=== PATIENT | male | born 1960 | race Caucasian/White ===

== ENCOUNTER 2019-12-12 10:00 | Outpatient (REF) | payer OTHER, SELFPAY | END 2019-12-12 10:01 | disposition home or self-care (01) | LOC: HO.HMGCLDS 10:00 | PROVIDERS: PCP Nurse Practitioner Family; Visit Provider Internal Medicine | DX: Z20.828 Contact with and (suspected) exposure to other viral communicable diseases (principal) | CPT/HCPCS: 36415; 87635 ==

== ENCOUNTER 2020-04-30 13:07 | Outpatient (REF) | payer OTHER, SELFPAY ==
--- NOTE | ~2020-04-30 | US_ITS ---
EXAMINATION: US VENOUS ULTRASOUND WITH DOPPLER LOWER EXTREMITY, LEFT CLINICAL INFORMATION: Localized edema COMPARISON: None TECHNIQUE: Ultrasound of the deep veins is performed from the hip to the calf with compression sonography and color and pulse Doppler assessment. Spectral analysis with color-flow imaging is performed. FINDINGS: There is normal venous compression and respiratory variation and augmented flow. The visualized common femoral vein, superficial femoral vein, profunda femoral vein, popliteal vein, and the trifurcation region shows no evidence of deep venous thrombosis. There is no significant popliteal fossa cyst. There is a prominent left inguinal lymph node that measures 4.0 x 0.9 x 3.8 cm. It continues to have echogenic central fatty hilum, a benign morphologic feature. If the patient's symptoms persist, followup ultrasound in 5 days 7 days might be of value to exclude proximal propagation from a non-visualized calf vein. US/US venous duplex LE LT IMPRESSION: No DVT demonstrated in the left lower extremity. Enlarged left inguinal lymph node, nonspecific.
== END 2020-04-30 13:08 | disposition home or self-care (01) ==
LOC: HO.HMGCX 13:07
PROVIDERS: Visit Provider Hospitalist
DX: R60.0 Localized edema (principal)
CPT/HCPCS: 93971

== ENCOUNTER → 2020-06-05 10:14 | Outpatient (BNVA) | payer OTHER, SELFPAY | PROVIDERS: PCP Nurse Practitioner Family; Visit Provider Surgery Vascular Surgery | DX: I83.12 Varicose veins of left lower extremity with inflammation (principal) | CPT/HCPCS: 99202 ==

== ENCOUNTER 2020-06-12 10:15 | Outpatient (REF) | payer OTHER, SELFPAY ==
--- NOTE | ~2020-06-12 | US_ITS ---
EXAMINATION: RIGHT and LEFT LOWER EXTREMITY VENOUS ULTRASOUND (Reflux Exam) CLINICAL INDICATION: Varicose veins of the left lower extremity with inflammation. COMPARISON: 04/30/2020 TECHNIQUE: Color flow triplex imaging and compression Doppler was performed to evaluate both the deep and the superficial systems bilaterally. To evaluate the superficial system, the examination was performed in the upright position. Color-flow Doppler ultrasound and compression ultrasound were utilized. In addition, maneuvers were utilized to demonstrate reflux. FINDINGS: 1. DEEP VENOUS ULTRASOUND OF THE RIGHT LOWER EXTREMITY: Respiratory variation, normal compression and augmented flow are noted in the right common femoral vein as well as the right popliteal vein and there is no evidence of deep venous thrombosis at these locations. There is no evidence of reflux in the deep system in either the common femoral vein or the popliteal vein. There is no evidence of a Jerry's cyst. 2. SUPERFICIAL ULTRASOUND WITH DOPPLER OF RIGHT LOWER EXTREMITY: The right great saphenous vein at the saphenofemoral junction measures 7 mm without reflux, within the proximal thigh 7 mm with reflux of greater than 2 seconds, at the mid thigh 5 mm without reflux, above the knee 4 mm without reflux, below the knee 4 mm without reflux, at mid calf 4 mm without reflux, and at the ankle measures 3 mm without reflux. The right small saphenous vein measures 4 mm and shows no reflux. 3. DEEP VENOUS ULTRASOUND OF THE LEFT LOWER EXTREMITY: Respiratory variation, normal compression and augmented flow are noted in the left common femoral vein as well as the left popliteal vein and there is no evidence of deep venous thrombosis at these locations. There is reflux within the common femoral vein of approximately 1 second duration. There is no evidence of a popliteal artery aneurysm or popliteal fossa cyst. 4. SUPERFICIAL ULTRASOUND WITH DOPPLER OF LEFT LOWER EXTREMITY: Left great saphenous vein at the saphenofemoral junction measures 7 mm with reflux up to 2.7 seconds, at the mid thigh 6 mm with reflux of greater than 2 seconds, above the knee 7 mm with reflux greater than 3 seconds, below the knee 6 mm right foot reflux greater than 3 seconds, at mid calf 3 mm without reflux, and at the ankle measures 3 mm without reflux. The left small saphenous vein measures 3 mm and shows no reflux. There are 3 mm perforators present, one in the distal thigh with reflux up to 3 seconds, one within the proximal calf without reflux, and one in the distal calf with reflux of greater than 1 second. Varicosities are seen within the distal thigh, proximal calf, mid calf, and distal calf with reflux up to greater than 3 seconds US/US venous duplex LE BI IMPRESSION: No evidence of reflux or thrombus in the common femoral veins or popliteal veins within the right lower extremity and with reflux only seen in the common femoral vein of up to 1 second within the left lower extremity. Venous insufficiency within the right lower extremity within the proximal thigh but not at the saphenofemoral junction. Venous insufficiency from the saphenofemoral junction through below the knee in the left lower extremity.
== END 2020-06-12 10:16 | disposition home or self-care (01) ==
LOC: HO.US 10:15
PROVIDERS: Visit Provider Surgery Vascular Surgery
DX: I83.893 Varicose veins of bilateral lower extremities with other complications (principal)
CPT/HCPCS: 93970

== ENCOUNTER → 2020-06-26 10:02 | Outpatient (BNVA) | payer OTHER, SELFPAY | PROVIDERS: PCP Nurse Practitioner Family; Visit Provider Surgery Vascular Surgery | DX: I83.12 Varicose veins of left lower extremity with inflammation (principal) | CPT/HCPCS: 99212 ==

== ENCOUNTER → 2020-07-04 11:10 | Outpatient (BNVA) | payer OTHER, SELFPAY | PROVIDERS: PCP Nurse Practitioner Family; Visit Provider Urology ==

== ENCOUNTER → 2020-07-20 10:37 | Outpatient (BNVA) | payer OTHER, SELFPAY | PROVIDERS: PCP Nurse Practitioner Family; Visit Provider Surgery Vascular Surgery | DX: I83.12 Varicose veins of left lower extremity with inflammation (principal) | CPT/HCPCS: 36475 ==

== ENCOUNTER 2020-07-23 11:17 | Outpatient (REF) | payer OTHER, SELFPAY ==
--- NOTE | ~2020-07-23 | US_ITS ---
EXAMINATION: US VENOUS ULTRASOUND WITH DOPPLER LOWER EXTREMITY, LEFT CLINICAL INFORMATION: This is a 60-year-old male who status post left leg radiofrequency ablation of the great saphenous vein. The procedure was performed on 07/20/2020. COMPARISON: None TECHNIQUE: Ultrasound of the deep veins is performed from the hip to the calf with compression sonography and color and pulse Doppler assessment. Spectral analysis with color-flow imaging is performed. FINDINGS: There is normal venous compression and respiratory variation and augmented flow. The visualized common femoral vein, superficial femoral vein, profunda femoral vein, popliteal vein, and the trifurcation region shows no evidence of deep venous thrombosis. There is no significant popliteal fossa cyst. The great saphenous vein appears occluded at 0.8 cm from the saphenofemoral junction. There is no extension into the common femoral vein. US/US venous duplex LE LT IMPRESSION: 1. No DVT demonstrated in the left lower extremity. 2. The great saphenous vein is occluded 0.8 cm from the saphenofemoral junction.
== END 2020-07-23 11:18 | disposition home or self-care (01) ==
LOC: HO.HMGCX 11:17
PROVIDERS: Visit Provider Surgery Vascular Surgery
DX: M79.605 Pain in left leg (principal)
CPT/HCPCS: 93971

== ENCOUNTER → 2020-08-02 09:01 | Outpatient (BNVA) | payer OTHER, SELFPAY | PROVIDERS: PCP Nurse Practitioner Family; Visit Provider Surgery Vascular Surgery | DX: I83.12 Varicose veins of left lower extremity with inflammation (principal) | CPT/HCPCS: 99212 ==

== ENCOUNTER 2020-10-22 09:17 | Outpatient (REF) | payer OTHER, SELFPAY ==
[2020-10-22 11:45] LABS: Glucose Urine UA NEG (NEG); Leukocyte Esterase Urine NEG (NEG); Nitrite Urine NEG (NEG); PH 5.5 (5.0-8.0); Specific Gravity - Urine >= 1.030 (1.005-1.025); UACC Culture Trigger NO; Urine Blood TRACE (NEG); Urine Ketones NEG (NEG); Urine Protein TRACE MG/DL (NEG-TRACE)
[2020-10-22 11:51] LABS: Appearance Urine CLEAR; Color Urine YELLOW
[2020-10-22 12:06] LABS: Bacteria Urine TRACE /LPF; Mucus Urine TRACE /LPF; RBC Urine 0-2 /HPF (0); Squamous Epithelial Cell Urine TRACE /LPF; Uric Acid Crystals Urine 2+ /LPF; WBC Urine 0-2 /HPF (0-4)
[2020-10-22 12:10] LABS: Alanine Aminotransferase 30 U/L (0-40); Albumin Level 4.3 g/dL (3.5-5.0); Alkaline Phosphatase 126 U/L (39-117); Anion Gap 16 (12-20); Aspartate Amino Transferase 33 U/L (5-37); Bilirubin Total 0.7 mg/dL (0.0-1.0); Blood Urea Nitrogen 15 mg/dL (9-16); Calcium 9.1 mg/dL (8.4-10.2); Carbon Dioxide 22 mmol/L (22-29); Chloride 109 mmol/L (96-108); Cholesterol 158 mg/dL; Estimated Glomerular Filt Rate > 60; Glucose Fasting 110 mg/dL (60-99); HDL Cholesterol 60 mg/dL; LDL Cholesterol Calculated 62 mg/dl; Potassium 3.9 mmol/L (3.3-5.1); Sodium 143 mmol/L (135-145); Total Protein 7.1 g/dL (6.5-8.0); Triglycerides 180 mg/dL
[2020-10-22 12:12] LABS: Prostate Specific Antigen Scr 0.84 ng/mL (<0.05-4.0); TSH reflex Free T4 0.76 uIU/mL (0.32-4.0)
== END 2020-10-22 09:18 | disposition home or self-care (01) ==
LOC: HO.HMGCLDS 09:17
PROVIDERS: PCP Nurse Practitioner Family; Visit Provider Nurse Practitioner Family
DX: Z00.00 Encounter for general adult medical examination without abnormal findings (principal); Z12.5 Encounter for screening for malignant neoplasm of prostate
CPT/HCPCS: 36415; 80053; 80061; 81001; 84153; 84443

== ENCOUNTER 2020-11-13 08:30 | Outpatient (REF) | payer OTHER, SELFPAY ==
[2020-11-13 12:17] LABS: Appearance Urine CLOUDY; Color Urine YELLOW; Glucose Urine UA NEG (NEG); Leukocyte Esterase Urine NEG (NEG); Nitrite Urine NEG (NEG); Specific Gravity - Urine >= 1.030 (1.005-1.025); UACC Culture Trigger NO; Urine Blood TRACE (NEG); Urine Ketones NEG (NEG); Urine Protein TRACE MG/DL (NEG-TRACE)
[2020-11-13 12:21] LABS: Alanine Aminotransferase 29 U/L (0-40); Albumin Level 4.3 g/dL (3.5-5.0); Alkaline Phosphatase 133 U/L (39-117); Aspartate Amino Transferase 26 U/L (5-37); Bilirubin Direct 0.3 mg/dL (0.0-0.5); Bilirubin Total 0.7 mg/dL (0.0-1.0); Gamma Glutamyl Transpeptidase 73 U/L (11-51); Total Protein 7.1 g/dL (6.5-8.0)
[2020-11-13 12:48] LABS: Amorphous Sediment Urine 3+ /LPF; Calcium Oxalate Crystals Urine 1+ /LPF; RBC Urine 0 /HPF (0); WBC Urine 0 /HPF (0-4)
== END 2020-11-13 08:31 | disposition home or self-care (01) ==
LOC: HO.HMGCLDS 08:30
PROVIDERS: PCP Nurse Practitioner Family; Visit Provider Nurse Practitioner Family
DX: R74.8 Abnormal levels of other serum enzymes (principal)
CPT/HCPCS: 36415; 80076; 81001; 81003; 82977

== ENCOUNTER 2020-12-26 08:56 | Outpatient (REF) | payer OTHER, SELFPAY ==
[2020-12-26 11:00] LABS: Alanine Aminotransferase 28 U/L (0-40); Albumin Level 4.4 g/dL (3.5-5.0); Alkaline Phosphatase 123 U/L (39-117); Aspartate Amino Transferase 27 U/L (5-37); Bilirubin Direct 0.3 mg/dL (0.0-0.5); Bilirubin Total 1.2 mg/dL (0.0-1.0); Gamma Glutamyl Transpeptidase 93 U/L (11-51); Total Protein 7.5 g/dL (6.5-8.0)
[2020-12-30 13:07] LABS: Alk.Phos Iso. Macrohepatic 0 % (<=0); Alk.Phos Isoenzymes Bone 28 % (28-66); Alk.Phos Isoenzymes Intest 7 % (1-24); Alk.Phos Isoenzymes Liver 65 % (25-69); Alk.Phos Isoenzymes Placental 0 % (<=0); Alk.Phos Isoenzymes Total 112 U/L (35-144)
== END 2020-12-26 08:57 | disposition home or self-care (01) ==
LOC: HO.LAB 08:56
PROVIDERS: PCP Nurse Practitioner Family; Referring Provider Nurse Practitioner Family; Visit Provider Nurse Practitioner Family
DX: R74.8 Abnormal levels of other serum enzymes (principal); E78.5 Hyperlipidemia, unspecified; R17 Unspecified jaundice; R10.9 Unspecified abdominal pain; Z12.11 Encounter for screening for malignant neoplasm of colon; Z87.891 Personal history of nicotine dependence
CPT/HCPCS: 36415; 80076; 82977; 84075; 84080; 99202

== ENCOUNTER → 2020-12-27 10:11 | Outpatient (BNVA) | payer OTHER, SELFPAY | PROVIDERS: Visit Provider Urology | DX: R31.0 Gross hematuria (principal) | CPT/HCPCS: 99212 ==

== ENCOUNTER 2021-03-28 | Outpatient (REF) | payer OTHER, SELFPAY ==
[2021-03-28 12:42] LABS: Alanine Aminotransferase 27 U/L (0-40); Albumin Level 4.4 g/dL (3.5-5.0); Alkaline Phosphatase 158 U/L (39-117); Aspartate Amino Transferase 23 U/L (5-37); Bilirubin Direct 0.2 mg/dL (0.0-0.5); Bilirubin Total 0.5 mg/dL (0.0-1.0); Lipase 38 U/L (8-78); Total Protein 7.7 g/dL (6.5-8.0)
[2021-03-28 14:06] LABS: Vitamin B12 238 pg/mL (200-900)
[2021-04-12 07:42] LABS: Vitamin D 25-OH, D2 <4; Vitamin D 25-OH, D3 43; Vitamin D 25-OH, Total 43
== END 2021-03-28 00:01 | disposition home or self-care (01) ==
LOC: HO.LAB
PROVIDERS: Visit Provider Nurse Practitioner Family
DX: R74.8 Abnormal levels of other serum enzymes (principal)
CPT/HCPCS: 36415; 80076; 82306; 82607; 82746; 83690

== ENCOUNTER → 2021-03-28 10:57 | Outpatient (BNVA) | payer OTHER, SELFPAY | PROVIDERS: PCP Nurse Practitioner Family; Visit Provider Nurse Practitioner Family | DX: R74.8 Abnormal levels of other serum enzymes (principal); R10.84 Generalized abdominal pain | CPT/HCPCS: 36415; 99212 ==

== ENCOUNTER 2021-05-01 11:28 | Outpatient (REF) | payer OTHER, SELFPAY ==
--- NOTE | ~2021-05-01 | US_ITS ---
EXAMINATION: US COMPLETE ABDOMEN WITH LIVER ELASTOGRAPHY CLINICAL INFORMATION: Abnormal liver function tests. COMPARISON: Previous abdominal ultrasound from 2016, abdominal MRI November [address] of the abdomen and pelvis November 2019 TECHNIQUE: Real-time imaging of the abdominal viscera. Noninvasive ultrasound liver fibrosis assessment is performed using Bayron ElastPQ point quantification shear wave elastography (2D-SWE) with a C5-2 MHz transducer. Multiple elastography samples are obtained. FINDINGS: PANCREAS: Normal. ABDOMINAL AORTA: The proximal, middle, and distal aortic segments are normal in caliber. INFERIOR VENA CAVA: Visualized portions are normal. LIVER: The liver echotexture is slightly increased. The liver is normal in contour. The liver is upper normal in size. There is a 1.3 cm hyperechoic lesion in the right lobe of the liver likely corresponding to a hemangioma seen on MRI. The other hemangioma in the left lobe of the liver is not appreciated. There is no biliary duct dilatation. The right lobe measures 18 cm in length. The left lobe measures 15 cm in length. Portal flow is normal/hepatopetal. Shear wave liver elastography median stiffness is 1.3 m/s (reference: normal median stiffness is 1.3 m/s or less). IQR/median stiffness to assess sampling precision is 0.6 (reference: good quality data set is IQR/median stiffness of 0.15 or less). GALLBLADDER: Normal. The gallbladder is physiologically distended without evidence of stones, sludge, polyps, wall thickening or pericholecystic fluid. COMMON BILE DUCT: Normal in caliber measuring 0.4 cm in diameter. RIGHT KIDNEY: There are 2 small echogenic lesions in the midpole measuring 3 and 6 mm. No corresponding abnormality is seen on previous CT or MRI. This finding was not appreciated on previous ultrasound from 2017. No hydronephrosis. No renal calculi or focal parenchymal lesions. The kidney measures 10.5 cm in maximum dimension. LEFT KIDNEY: Normal. No hydronephrosis. No renal calculi or focal parenchymal lesions. The kidney measures 11.7 cm in maximum dimension. SPLEEN: Normal. The spleen measures 12 cm in maximum dimension. FREE FLUID: None. US/US abdomen comp w elastography IMPRESSION: 1. Slightly echogenic liver. 1.3 cm echogenic lesion in the right lobe probably corresponding to known liver hemangioma. The second small hemangioma in the left lobe is not appreciated. Two small echogenic lesions in the midpole of the right kidney. No corresponding abnormality is appreciated on previous CT or MRI, and this is a new finding from previous ultrasound June 2016. 2. Liver elastography: Adequate liver sampling. Normal liver stiffness. REFERENCE: Society of Radiologists in Ultrasound Liver Stiffness Thresholds (2019): LIVER STIFFNESS THRESHOLDS: *Liver Stiffness equal or less than 1.3 m/s: High probability of being normal. *Liver Stiffness less than 1.7 m/s: In the absence of other known clinical signs, rules out compensated advanced chronic liver disease. *Liver Stiffness 1.7-2.1 m/s: Suggestive of compensated advanced chronic liver disease but need further test for confirmation. *Liver Stiffness over 2.1 m/s: Rules in compensated advanced chronic liver disease. *Liver Stiffness over 2.4 m/s: Suggestive of clinically significant portal hypertension. QUALITY OF DATA SET: *IQR/Median value equal or less than 0.15 implies a quality data set. *IQR/Median value over 0.15 implies a poor quality data set. SIGNIFICANT CHANGE FROM PRIOR EXAM: Significant change if liver stiffness measurement is 10% or greater from prior exam. OTHER CONSIDERATIONS: The stage of liver fibrosis may be overestimated in the setting of acute hepatitis, liver inflammation, elevated liver function tests, hepatic vascular congestion, obstructive cholestasis, non-fasting state, and infiltrative diseases such as amyloidosis and lymphoma. In some patients with NAFLD, the liver stiffness thresholds for compensated advanced chronic liver disease may be lower. In causes other than viral hepatitis and NAFLD, liver stiffness thresholds are not well established.
== END 2021-05-01 11:29 | disposition home or self-care (01) ==
LOC: HO.US 11:28
PROVIDERS: Visit Provider Nurse Practitioner Family
DX: R79.89 Other specified abnormal findings of blood chemistry (principal)
CPT/HCPCS: 76705; 76981

== ENCOUNTER 2021-06-10 09:11 | Outpatient (REF) | payer OTHER, SELFPAY ==
[2021-06-10 12:08] LABS: Appearance Urine CLOUDY; Color Urine YELLOW; Glucose Urine UA NEG (NEG); Leukocyte Esterase Urine NEG (NEG); Nitrite Urine NEG (NEG); Specific Gravity - Urine >= 1.030 (1.005-1.025); UACC Culture Trigger NO; Urine Blood 1+ (NEG); Urine Ketones NEG (NEG); Urine Protein NEG (NEG-TRACE)
[2021-06-10 12:29] LABS: Alanine Aminotransferase 30 U/L (0-40); Alkaline Phosphatase 109 U/L (39-117); Anion Gap 13 (12-20); Aspartate Amino Transferase 19 U/L (5-37); Bilirubin Total 0.6 mg/dL (0.0-1.0); Blood Urea Nitrogen 12 mg/dL (9-16); Calcium 8.9 mg/dL (8.4-10.2); Carbon Dioxide 28 mmol/L (22-29); Chloride 106 mmol/L (96-108); Cholesterol 130 mg/dL; Estimated Glomerular Filt Rate > 60; Glucose Fasting 116 mg/dL (60-99); HDL Cholesterol 49 mg/dL; LDL Cholesterol Calculated 61 mg/dl; Potassium 4.1 mmol/L (3.3-5.1); Sodium 143 mmol/L (135-145); Total Protein 6.6 g/dL (6.5-8.0); Triglycerides 100 mg/dL
[2021-06-10 12:50] LABS: TSH reflex Free T4 0.66 uIU/mL (0.32-4.0)
[2021-06-10 13:07] LABS: RBC Urine 0 /HPF (0); WBC Urine 0 /HPF (0-4)
[2021-06-10 13:08] LABS: Amorphous Sediment Urine 4+ /LPF
== END 2021-06-10 09:12 | disposition home or self-care (01) ==
LOC: HO.HMGCLDS 09:11
PROVIDERS: PCP Nurse Practitioner Family; Visit Provider Nurse Practitioner Family
DX: R74.8 Abnormal levels of other serum enzymes (principal)
CPT/HCPCS: 36415; 80053; 80061; 81001; 81003; 84443

== ENCOUNTER → 2021-07-01 10:48 | Outpatient (BNVA) | payer OTHER, SELFPAY | PROVIDERS: PCP Nurse Practitioner Family; Referring Provider Nurse Practitioner Family; Visit Provider Nurse Practitioner Family | DX: K58.9 Irritable bowel syndrome, unspecified (principal); R74.8 Abnormal levels of other serum enzymes | CPT/HCPCS: 99212 ==

== ENCOUNTER 2021-10-23 08:22 | Outpatient (REF) | payer OTHER, SELFPAY ==
[2021-10-23 11:35] LABS: MANUAL DIFF FLAG NO
[2021-10-23 11:36] LABS: Appearance Urine Turbid; Color Urine Yellow; Glucose Urine UA Negative (Negative); Leukocyte Esterase Urine Negative (Negative); Nitrite Urine Negative (Negative); PH 5.5 (5.0-8.0); Specific Gravity - Urine 1.015 (1.005-1.025); Urine Blood Trace (Negative); Urine Ketones Negative (Negative); Urine Protein Trace mg/dL (Neg-Trace)
[2021-10-23 11:43] LABS: Basophils Absolute Auto 0.1 X10*3/uL (0.0-0.2); Basophils Percent Auto 1.1 % (0-2); Eosinophils Absolute Auto 0.1 X10*3/uL (0.0-0.4); Eosinophils Percent Auto 2.5 % (0-4); Hematocrit 44.2 % (42.0-52.0); Imm Gran Abs Auto 0.01 X10*3/uL (0.00-0.03); Imm Gran Pct Auto 0.2 % (0.0-0.4); Lymphocytes Absolute Auto 1.8 X10*3/uL (1.2-4.9); Mean Corpuscular HGB Conc 33.9 g/dl (31.0-36.0); Mean Corpuscular Hemoglobin 30.5 pg (27.0-33.0); Mean Platelet Volume 11.4 fL (9.4-12.4); Monocytes Absolute Auto 0.4 X10*3/uL (0.1-1.2); Monocytes Percent Auto 7.6 % (2-11); Neutrophils Absolute Auto 2.8 x10*3/uL (2.0-8.3); Neutrophils Percent Auto 53.6 % (45-73); Platelet Count 260 X10*3/uL (160-400); Red Blood Count 4.91 X10*6/uL (4.60-5.80); Red Cell Distribution Width 12.9 % (11.0-16.0); White Blood Count 5.3 X10*3/uL (4.8-10.8)
[2021-10-23 11:43] LABS: Bacteria Urine None Seen (None Seen); Hyaline Casts Urine 0-2 /LPF (0-2); RBC Urine 0-2 /HPF (0-2); Squamous Epithelial Cell Urine 0-2 /HPF (0-2); WBC Urine 0-5 /HPF (0-5)
[2021-10-23 12:16] LABS: TSH reflex Free T4 1.31 uIU/mL (0.32-4.0)
[2021-10-23 12:26] LABS: Alanine Aminotransferase 25 U/L (0-40); Albumin Level 4.1 g/dL (3.5-5.0); Alkaline Phosphatase 110 U/L (39-117); Anion Gap 14 (12-20); Aspartate Amino Transferase 22 U/L (5-37); Bilirubin Total 0.2 mg/dL (0.0-1.0); Blood Urea Nitrogen 11 mg/dL (9-16); Calcium 8.8 mg/dL (8.4-10.2); Carbon Dioxide 26 mmol/L (22-29); Chloride 105 mmol/L (96-108); Cholesterol 162 mg/dL; Estimated Glomerular Filt Rate > 60; Glucose Fasting 111 mg/dL (60-99); HDL Cholesterol 61 mg/dL; LDL Cholesterol Calculated 56 mg/dl; Potassium 4.1 mmol/L (3.3-5.1); Sodium 141 mmol/L (135-145); Triglycerides 225 mg/dL
== END 2021-10-23 08:23 | disposition home or self-care (01) ==
LOC: HO.HMGCLDS 08:22
PROVIDERS: PCP Nurse Practitioner Family; Visit Provider Nurse Practitioner Family
DX: Z00.00 Encounter for general adult medical examination without abnormal findings (principal)
CPT/HCPCS: 36415; 80053; 80061; 81001; 84443; 85025

== ENCOUNTER 2021-11-19 13:40 | Outpatient (REF) | payer OTHER, SELFPAY ==
[2021-11-19 14:12] LABS: Binax Internal Control QC Valid; Binax Now Covid-19 Ag Negative (Negative); Binax Performed by: HO.BONILM
== END 2021-11-19 13:41 | disposition home or self-care (01) ==
LOC: HO.HMGCLDS 13:40
PROVIDERS: PCP Nurse Practitioner Family; Visit Provider Nurse Practitioner Family
DX: Z20.822 Contact with and (suspected) exposure to COVID-19 (principal)
CPT/HCPCS: 87811; C9803

== ENCOUNTER → 2021-12-31 10:23 | Outpatient (BNVA) | payer OTHER, SELFPAY | PROVIDERS: PCP Nurse Practitioner Family; Visit Provider Nurse Practitioner Family | DX: R74.8 Abnormal levels of other serum enzymes (principal) | CPT/HCPCS: 99212 ==

== ENCOUNTER 2022-02-04 11:19 | Outpatient (REF) | payer OTHER, SELFPAY ==
[2022-02-05 13:04] LABS: Urine Cytology See Pathology rpt
== END 2022-02-04 11:20 | disposition home or self-care (01) ==
LOC: HO.LAB 11:19
PROVIDERS: Visit Provider Urology
DX: R31.0 Gross hematuria (principal); N28.1 Cyst of kidney, acquired
CPT/HCPCS: 88112; 99212

== ENCOUNTER 2022-07-08 08:06 | Outpatient (REF) | payer OTHER, SELFPAY ==
--- NOTE | ~2022-07-08 | US_ITS ---
EXAMINATION: US RETROPERITONEAL LIMITED (RENAL ONLY) CLINICAL INFORMATION: Cyst of kidney, acquired. COMPARISON: Ultrasound abdomen complete 05/01/2021 TECHNIQUE: Real-time imaging of the kidneys. FINDINGS: RIGHT KIDNEY: 12.0 x 5.5 x 6.1 cm (SAG x AP x TRV). The kidney is normal in size, contour, and echogenicity. Renal cortical thickness is normal. No calculi or focal parenchymal lesions. No hydronephrosis. Echogenic avascular masses in the mid pole measuring 8 mm and 5 mm respectively, which may reflect small angiomyolipomas, previously 7 mm and 4 mm. LEFT KIDNEY: 11.8 x 5.8 x 5.0 cm (SAG x AP x TRV). The kidney is normal in size, contour, and echogenicity. Renal cortical thickness is normal. No calculi or focal parenchymal lesions. No hydronephrosis. US/US renal BI IMPRESSION: Echogenic avascular masses in the right renal mid pole measuring 8 mm and 5 mm respectively, which may reflect small angiomyolipomas.
== END 2022-07-08 08:07 | disposition home or self-care (01) ==
LOC: HO.HMGCX 08:06
PROVIDERS: PCP Nurse Practitioner Family; Visit Provider Urology
DX: N28.1 Cyst of kidney, acquired (principal)
CPT/HCPCS: 76775

== ENCOUNTER 2022-07-17 08:02 | Outpatient (REF) | payer OTHER, SELFPAY ==
[2022-07-17 11:15] LABS: MANUAL DIFF FLAG NO
[2022-07-17 11:32] LABS: Appearance Urine Clear; Color Urine Yellow; Glucose Urine UA Negative (Negative); Leukocyte Esterase Urine Negative (Negative); Nitrite Urine Negative (Negative); PH 5.5 (5.0-9.0); Specific Gravity - Urine 1.015 (1.005-1.025); UMIC TRIGGER UACC YES; Urine Blood Small (1+) (Negative); Urine Ketones Negative (Negative); Urine Protein Trace mg/dL (Neg-Trace)
[2022-07-17 11:42] LABS: Basophils Absolute Auto 0.1 X10*3/uL (0.0-0.2); Basophils Percent Auto 0.8 % (0-2); Eosinophils Absolute Auto 0.2 X10*3/uL (0.0-0.4); Eosinophils Percent Auto 2.8 % (0-4); Hematocrit 43.8 % (42.0-52.0); Hemoglobin 14.9 g/dl (14.0-18.0); Imm Gran Abs Auto 0.01 X10*3/uL (0.00-0.03); Imm Gran Pct Auto 0.2 % (0.0-0.4); Lymphocytes Percent Auto 32.5 % (20-40); Mean Corpuscular Hemoglobin 30.8 pg (27.0-33.0); Mean Corpuscular Volume 90.7 fL (80.0-98.0); Mean Platelet Volume 11.7 fL (9.4-12.4); Monocytes Absolute Auto 0.4 X10*3/uL (0.1-1.2); Neutrophils Absolute Auto 3.5 x10*3/uL (2.0-8.3); Neutrophils Percent Auto 56.7 % (45-73); Platelet Count 250 X10*3/uL (160-400); Red Blood Count 4.83 X10*6/uL (4.60-5.80); Red Cell Distribution Width 12.3 % (11.0-16.0); White Blood Count 6.1 X10*3/uL (4.8-10.8)
[2022-07-17 11:53] LABS: Bacteria Urine None Seen (None Seen); Hyaline Casts Urine 0-2 /LPF (0-2); Squamous Epithelial Cell Urine 0-2 /HPF (0-2); WBC Urine 0-5 /HPF (0-5)
[2022-07-17 12:28] LABS: TSH reflex Free T4 1.18 uIU/mL (0.32-4.0)
[2022-07-17 12:50] LABS: Alanine Aminotransferase 28 U/L (0-40); Albumin Level 4.1 g/dL (3.5-5.0); Alkaline Phosphatase 124 U/L (39-117); Anion Gap 14 (12-20); Aspartate Amino Transferase 23 U/L (5-37); Bilirubin Total 0.6 mg/dL (0.0-1.0); Blood Urea Nitrogen 13 mg/dL (9-16); Calcium 9.1 mg/dL (8.4-10.2); Carbon Dioxide 24 mmol/L (22-29); Chloride 106 mmol/L (96-108); Cholesterol 150 mg/dL; Estimated Glomerular Filt Rate > 60; Glucose Fasting 113 mg/dL (60-99); HDL Cholesterol 52 mg/dL; LDL Cholesterol Calculated 49 mg/dl; Potassium 4.1 mmol/L (3.3-5.1); Sodium 140 mmol/L (135-145); Total Protein 6.8 g/dL (6.5-8.0); Triglycerides 249 mg/dL
== END 2022-07-17 08:03 | disposition home or self-care (01) ==
LOC: HO.HMGCLDS 08:02
PROVIDERS: PCP Nurse Practitioner Family; Visit Provider Nurse Practitioner Family
DX: F10.10 Alcohol abuse, uncomplicated (principal); E78.1 Pure hyperglyceridemia
CPT/HCPCS: 36415; 80053; 80061; 81001; 84443; 85025

== ENCOUNTER → 2022-07-31 08:29 | Outpatient (BNVA) | payer OTHER, SELFPAY | PROVIDERS: PCP Nurse Practitioner Family; Visit Provider Urology | DX: D17.9 Benign lipomatous neoplasm, unspecified (principal) | CPT/HCPCS: 99212 ==

== ENCOUNTER 2022-12-16 08:32 | Outpatient (AMB) | payer OTHER, SELFPAY ==
[2022-12-16 08:46] VITALS: BP 100/70; PULSE 70; O2SAT 97; BMI 30.4
--- NOTE | 2022-12-16 08:46 | MHC.PC.OV ---
Vital Signs 12/16/22 08:46 Height 5 ft 11 in Weight 218 lb 2 oz BMI 30.4 BP 100/70 Blood Pressure Location Lt brachial Position Sitting Pulse 70 Pulse Source Pulse Oximeter Pulse Oximetry (%) 97 Oxygen Delivery Method Room Air Intake Visit Reasons: 5m follow up Allergies No Known Allergies Allergy (Verified 12/16/22 08:48) Tobacco use date assessed: 12/16/22 Dental Screening Dental Screen Date: 12/16/22 Did you have a dental visit in the last 12 months?: Yes Did you have a dental problem in the last 6 months where you did not have access to dental care?: No Was dental information given to patient?: Patient has dentist HPI 5m follow up HPI Details Pt's alk phos was elevated previously. Will repeat labs. Pt reports that he has cut back on his drinking somewhat. Denies fever, chills, and dizziness. Pt follows up with GI. PFSH Surgical History H/O prostatectomy H/O colonoscopy Family History Father No problems noted. Mother No problems noted. Social History Housing: House Alcohol intake: current Alcohol intake frequency: 3 or more drinks per day Patient Tobacco Use Status: Former Tobacco user Tobacco use type: Cigarette Cigarette Packs Per Day: 1 Cigarettes Per Day: 20 Years Smoked: 20 e-Cigarette/Vaping Use: Former Use Second Hand Smoke Exposure: No Current occupational status: employed Cognitive needs: No Hearing needs: No Vision needs: No Questionnaire Thrive Questionnaire Date Thrive assessed: 10/22/20 JAMES-7 AMB Questionnaire JAMES-7 Date JAMES - 7 assessed: 10/23/21 Source: Developed by Drs. Ishmael Parks, Melissa Huffman, Domo Duron and colleagues, with an educational darshan from [employer]. Review of Systems Const Reports as per HPI Physical exam (Primary Care) Vital Signs: Last Vital Signs Pulse 70 12/16/22 08:46 BP 100/70 12/16/22 08:46 Pulse Ox 97 12/16/22 08:46 Oxygen Delivery Method Room Air 12/16/22 08:46 BMI result Body Mass Index 30.4 Tobacco/Smoking Status: Tobacco use Status Tobacco use date assessed 12/16/22 12/16/22 08:51 Patient Tobacco Use Status Former Tobacco user 12/16/22 08:51 Tobacco use type Cigarette 12/16/22 08:51 e-Cigarette/Vaping Use Former Use 12/16/22 08:51 Thrive Assessment: Date of Thrive Assessment Date Thrive assessed 10/22/20 12/16/22 08:51 Const General: cooperative Orientation/consciousness: patient oriented x3 Resp Effort & Inspection: normal respiratory effort Auscultation: clear to auscultation bilaterally Cardio Rate: regular rate Rhythm: regular rhythm Heart sounds: S1 normal heart sound present and S2 normal heart sound present GI Palpation (GI): Soft to palpation, nontender and no guarding Auscultation: normal bowel sounds Neuro General: patient oriented x3 Psych Appearance: grossly normal Mental Status: mental status grossly normal Speech and movement: Normal speech and movement present Affect: normal affect Attitude: cooperative Thought process: Normal thought process present Thought content: Normal thought content present Insight: Good insight present (Psych) Judgement: Good judgement present (Psych) Assessment and Plan Assessment & Plan (1) Elevated alkaline phosphatase level: Code(s): R74.8 - Abnormal levels of other serum enzymes Plan: Labs ordered, sees GI, pt still drinking one beer daily (2) ETOH abuse: Code(s): F10.10 - Alcohol abuse, uncomplicated Plan: Labs ordered Plan The patient agreed to the use of a medical legal investigator for this encounter. Scribed for SEKOU Galo by humberto Grove scribe, on 12/16/2022 at 09:15 EST Orders: Orders Complete Blood Count Auto Diff Today F10.10 - Alcohol abuse, uncomplicated, R74.8 - Abnormal levels of other serum enzymes Comprehensive [place]. Panel Fast Today F10.10 - Alcohol abuse, uncomplicated, R74.8 - Abnormal levels of other serum enzymes Lipid Panel Today F10.10 - Alcohol abuse, uncomplicated, R74.8 - Abnormal levels of other serum enzymes Medications: Changed From sildenafil administer 30 minutes to 4 hours before activity 25 mg PO DAILY PRN 10 tabs 0RF sexual activity To sildenafil administer 30 minutes to 4 hours before activity 100 mg PO DAILY PRN 30 tabs 0RF sexual activity Coding Level of Care Code Est Pt Level 3 (11279) Diagnoses Elevated alkaline phosphatase level R74.8 ETOH abuse F10.10
== END 2022-12-16 10:11 | disposition home or self-care (01) ==
PROVIDERS: Visit Provider Nurse Practitioner Family
DX: R74.8 Abnormal levels of other serum enzymes (principal); F10.10 Alcohol abuse, uncomplicated
CPT/HCPCS: 99213

== ENCOUNTER 2023-01-16 07:50 | Outpatient (REF) | payer OTHER, SELFPAY ==
[2023-01-16 11:22] LABS: MANUAL DIFF FLAG NO
[2023-01-16 11:36] LABS: Basophils Absolute Auto 0.1 X10*3/uL (0.0-0.2); Basophils Percent Auto 0.7 % (0-2); Eosinophils Absolute Auto 0.2 X10*3/uL (0.0-0.4); Eosinophils Percent Auto 2.4 % (0-4); Hematocrit 44.1 % (42.0-52.0); Hemoglobin 14.9 g/dl (14.0-18.0); Imm Gran Abs Auto 0.01 X10*3/uL (0.00-0.03); Imm Gran Pct Auto 0.1 % (0.0-0.4); Lymphocytes Absolute Auto 2.1 X10*3/uL (1.2-4.9); Lymphocytes Percent Auto 30.7 % (20-40); Mean Corpuscular HGB Conc 33.8 g/dl (31.0-36.0); Mean Corpuscular Hemoglobin 30.7 pg (27.0-33.0); Mean Corpuscular Volume 90.9 fL (80.0-98.0); Mean Platelet Volume 11.6 fL (9.4-12.4); Monocytes Absolute Auto 0.6 X10*3/uL (0.1-1.2); Monocytes Percent Auto 8.6 % (2-11); Neutrophils Percent Auto 57.5 % (45-73); Platelet Count 264 X10*3/uL (160-400); Red Blood Count 4.85 X10*6/uL (4.60-5.80); Red Cell Distribution Width 12.3 % (11.0-16.0)
[2023-01-16 11:44] LABS: Alanine Aminotransferase 37 U/L (0-40); Albumin Level 4.2 g/dL (3.5-5.0); Alkaline Phosphatase 104 U/L (39-117); Anion Gap 11 (12-20); Aspartate Amino Transferase 28 U/L (5-37); Bilirubin Total 0.6 mg/dL (0.0-1.0); Blood Urea Nitrogen 11 mg/dL (9-16); Calcium 9.4 mg/dL (8.4-10.2); Carbon Dioxide 27 mmol/L (22-29); Chloride 105 mmol/L (96-108); Cholesterol 154 mg/dL (<200); Estimated Glomerular Filt Rate > 60; Glucose Fasting 109 mg/dL (60-99); HDL Cholesterol 46 mg/dL (>40); LDL Cholesterol Calculated 68 mg/dL (<100); Potassium 3.8 mmol/L (3.3-5.1); Sodium 139 mmol/L (135-145); Total Protein 7.3 g/dL (6.5-8.0); Triglycerides 202 mg/dL (<150)
== END 2023-01-16 07:51 | disposition home or self-care (01) ==
LOC: HO.HMGCLDS 07:50
PROVIDERS: PCP Nurse Practitioner Family; Visit Provider Nurse Practitioner Family
DX: R74.8 Abnormal levels of other serum enzymes (principal); F10.10 Alcohol abuse, uncomplicated
CPT/HCPCS: 36415; 80053; 80061; 85025

== ENCOUNTER 2023-01-20 08:59 | Outpatient (AMB) | payer OTHER, SELFPAY ==
--- NOTE | 2023-01-20 08:59 | A.OFFVIS_ITS ---
Intake Vital Signs 01/20/23 09:00 Height 5 ft 11 in Weight 220 lb 7.396 oz BMI 30.7 BP 152/94 H Blood Pressure Location Lt brachial Position Sitting Pulse 104 H Pulse Source Pulse Oximeter Intake Visit Reasons: 1 Year follow up Intake Note: Pt presents to the office today for a 1 year follow up. Pt states he is feeling okay. Pt denies any GI issues at this time. Allergies No Known Allergies Allergy (Verified 01/20/23 09:01) HPI 1 Year follow up HPI Details LAST VISIT: Elevated alkaline phosphatase level Normal alk phosphate levels. Normal liver enzymes. Previous elevation of alk phosphate levels not related to liver or intestinal issues. Patient reports that he has been feeling well denies any GI concerning symptoms. I will see him in 1 year, sooner on as needed basis. Patient is agreeable to this plan and verbalizes understanding of instructions. He was given the opportunity to ask questions and all questions answered. TODAY'S VISIT Patient is here today for follow-up. Patient reports that he has been feeling well. Denies any GI concerning symptoms. His liver enzymes and his alk phosphate levels are normal. Patient reports that he decrease the amount of alcohol that he is drinking. Denies any dyspepsia, dysphagia or odynophagia. Denies any melena, hematochezia, unintentional weight loss or ribbon like stools. Patient had colonoscopy in 2019 that show hyperplastic polyp and no need for repeat colonoscopy for another 6 years unless patient becomes symptomatic. Patient denies any abdominal pain or discomfort. Reports to be moving his bowels well without any issues. ? PFSH Surgical History H/O prostatectomy H/O colonoscopy Family History Father No problems noted. Mother No problems noted. Social History Housing: House Alcohol intake: current Alcohol intake frequency: 0-2 drinks per day Patient Tobacco Use Status: Former Tobacco user Tobacco use type: Cigarette Cigarette Packs Per Day: 1 Cigarettes Per Day: 20 Years Smoked: 20 e-Cigarette/Vaping Use: Former Use Second Hand Smoke Exposure: No Current occupational status: employed Cognitive needs: No Hearing needs: No Vision needs: No Review of Systems Const Denies weight gain and Denies weight loss ENT Reports no additional complaints, Denies dysphagia and Denies odynophagia Card Reports no additional complaints Resp Reports no additional complaints GI Denies abdominal pain, Denies belching, Denies melena, Denies bloating, Denies change in bowel habits, Denies dysphagia, Denies excessive flatus, Denies dyspepsia, Denies heartburn, Denies diarrhea, Denies loose stools, Denies nausea, Denies odynophagia and Denies vomiting Reports no additional complaints Musc Reports no additional complaints Neuro Reports no additional complaints Psych Reports no additional complaints Endo Reports no additional complaints Physical Exam Vital Signs: Last Vital Signs Pulse 104 H 01/20/23 09:00 BP 152/94 H 01/20/23 09:00 BMI result Body Mass Index 30.7 Const General: healthy appearing, no acute distress and well developed Nutritional Appearance: obese Orientation/consciousness: patient oriented x3 HEENT Head: Yes normal to inspection, Yes normocephalic and Yes atraumatic Face and sinus: Yes normal facial exam Mouth: Normal oral and palatal mucosa present Throat: Yes posterior oropharynx normal, Yes tonsils normal and Yes uvula midl ine Eyes General: appearance normal, both eyes and all related structures Neck Neck: Yes normal visual inspection, Yes full ROM and Yes trachea midline Thyroid: Thyroid normal Resp Effort & Inspection: normal respiratory effort, able to speak in complete sentences, no tracheal deviation and symmetric chest movement Auscultation: clear to auscultation bilaterally Cardio Rate: regular rate Heart sounds: S1 normal heart sound present and S2 normal heart sound present GI Inspection: Yes normal to inspection, No distended and Yes obesity Palpation (GI): Soft to palpation, not firm, nontender and No hepatosplenomegaly present Auscultation: normal bowel sounds General: Yes no CVA tenderness Back/Spine/Pelvis Back: no CVA tenderness Skin General skin exam: elasticity normal, turgor normal and dry skin Neuro General: patient oriented x3 Psych Appearance: grossly normal Mental Status: mental status grossly normal Assessment & Plan Assessment & Plan (1) Elevated alkaline phosphatase level: Code(s): R74.8 - Abnormal levels of other serum enzymes Plan Patient will follow-up in our office on as needed basis. No GI concerning symptoms. He will call us if he will have any concerns. Colorectal screening in the next 6 years, sooner if clinically necessary. Patient is agreeable to plan of care and verbalizes understanding of instructions. He was given the opportunity to ask questions and all questions answered. Thank you for allowing me to participate in his care Coding Level of Care Code Est Pt Level 3 (58993) Diagnoses Elevated alkaline phosphatase level R74.8 Time Spent (min) 25 Comment 15 minutes spent with patient and additional 10 minutes spent reviewing his records
[2023-01-20 09:00] VITALS: BP 152/94; PULSE 104; BMI 30.7
== END 2023-01-20 09:37 | disposition home or self-care (01) ==
PROVIDERS: PCP Nurse Practitioner Family; Visit Provider Nurse Practitioner Family
DX: R74.8 Abnormal levels of other serum enzymes (principal)
CPT/HCPCS: 99213

== ENCOUNTER → 2023-01-20 08:59 | Outpatient (BNVA) | payer OTHER, SELFPAY | PROVIDERS: PCP Nurse Practitioner Family; Visit Provider Nurse Practitioner Family | DX: R74.8 Abnormal levels of other serum enzymes (principal) | CPT/HCPCS: 99212 ==

== ENCOUNTER 2023-06-22 08:18 | Outpatient (AMB) | payer OTHER, SELFPAY ==
--- NOTE | 2023-06-22 08:44 | A.OFFPC_ITS ---
Vital Signs 06/22/23 08:45 Weight 220 lb BP 140/90 H Blood Pressure Location Lt brachial Position Sitting Pulse 87 Pulse Source Pulse Oximeter Pulse Oximetry (%) 97 Oxygen Delivery Method Room Air Intake Visit Reasons: 6 month fu Intake Note: Patient here for follow up on ETOH abuse Allergies No Known Allergies Allergy (Verified 06/22/23 08:46) Medication List - Last Reconciled 06/22/23 by SEKOU Hines atorvastatin 20 mg PO DAILY cholecalciferol (vitamin D3) 50 mcg PO DAILY omega-3 acid ethyl esters 1 cap PO BID sildenafil 100 mg PO DAILY PRN Tobacco use date assessed: 06/22/23 Fall risk assessment: No Falls in past year Last assessed Fall Risk: 06/22/23 Dental Screening Dental Screen Date: 06/22/23 Did you have a dental visit in the last 12 months?: Yes Did you have a dental problem in the last 6 months where you did not have access to dental care?: No Was dental information given to patient?: Patient has dentist HPI 6 month fu HPI Details HTN: Pt's blood pressure is elevated today. Will start amlodipine. Will have pt monitor his blood pressure at home. Denies chest pain, shortness of breath, headache, dizziness, and blurred vision. Pt reports that he continues to drink at least 3 large beers a day. Reenforced the importance of cutting back on this, ceasing alcohol altogether. He is not interested in treatment for this. 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 Urology recommended a repeat US in 5 years as recommended. Pt is following up with GI. [facility] Surgical History H/O prostatectomy H/O colonoscopy Family History Father No problems noted. Mother No problems noted. Social History Housing: House Alcohol intake: current Alcohol intake frequency: 0-2 drinks per day Patient Tobacco Use Status: Former Tobacco user Tobacco use type: Cigarette Cigarette Packs Per Day: 1 Cigarettes Per Day: 20 Years Smoked: 20 e-Cigarette/Vaping Use: Former Use Second Hand Smoke Exposure: No Current occupational status: employed Cognitive needs: No Hearing needs: No Vision needs: No Questionnaire PHQ-9 Over the last 2 weeks, how often have you been bothered by any of the following problems? 33760 - PHQ-9 Billing: Patient declined-do not bill Source: Developed by Drs. Ishmael Parks, Domo Pinto and colleagues, with an educational darshan from [employer]. Thrive Questionnaire Date Thrive assessed: 06/22/23 What is your living situation today?: I choose not to answer this question Within the past 12 months, did the food you bought not last and you didn't have the money to get more?: I choose not to answer this question Within the past 12 months, did you worry whether your food would run out before you got money to buy more?: I choose not to answer this question Do you have trouble paying for medicines?: I choose not to answer this question Do you have trouble getting transportation to medical appointments?: I choose not to answer this question Do you have trouble paying your heating and electricity bill?: I choose not to answer this question Do you have trouble taking care of your child, family member or friend?: I choose not to answer this question Do you have trouble with day-to-day activities such as bathing, preparing meals, shopping, managing finances, etc.?: I choose not to answer this question Are you currently unemployed and looking for a job?: I choose not to answer this question Are you interested in more education?: I choose not to answer this question Currently or been in a relationship where the following occur: I choose not to answer this question THRIVE Score: 0 AUDIT C Alcohol Use Questionnaire (AUDIT-C) 1. How often do you have a drink containing alcohol?: 4 or more times a week 2. How many drinks containing alcohol do you have on a typical day when you are drinking?: 3 or 4 3. How often do you have six or more drinks on one occasion?: Less than monthly Total Score: 6 Score Reviewed/Action Taken: Yes JAMES-7 AMB Questionnaire JAMSE-7 Date JAMES - 7 assessed: 06/22/23 Source: Developed by Melissa BaltazarDomo and colleagues, with an educational darshan from [employer]. JAMES-7 Assessment Billing JAMES-7 Assessment Tool: pt declined-do not bill Review of Systems Const Reports as per HPI Physical exam (Primary Care) Vital Signs: Last Vital Signs Pulse 87 06/22/23 08:45 BP 140/90 H 06/22/23 08:45 Pulse Ox 97 06/22/23 08:45 Oxygen Delivery Method Room Air 06/22/23 08:45 Tobacco/Smoking Status: Tobacco use Status Tobacco use date assessed 06/22/23 06/22/23 08:49 Patient Tobacco Use Status Former Tobacco user 06/22/23 08:45 Tobacco use type Cigarette 06/22/23 08:45 e-Cigarette/Vaping Use Former Use 06/22/23 08:45 Thrive Assessment: Date of Thrive Assessment Date Thrive assessed 06/22/23 06/22/23 08:49 Currently or been in a relationship where the following occur: I choose not to answer this question Const General: cooperative Orientation/consciousness: patient oriented x3 Resp Other: lungs fairly clear Effort & Inspection: normal respiratory effort Cardio Rate: regular rate Rhythm: regular rhythm Heart sounds: S1 normal heart sound present and S2 normal heart sound present Neuro General: patient oriented x3 Extrem Right lower extremity: edema (trace) Left lower extremity: edema (trace) Psych Appearance: grossly normal Mental Status: mental status grossly normal Speech and movement: Normal speech and movement present Affect: normal affect Attitude: cooperative Thought process: Normal thought process present Thought content: Normal thought content present Insight: Good insight present (Psych) Judgement: Good judgement present (Psych) Assessment and Plan Assessment & Plan (1) Angiomyolipoma: Code(s): D17.9 - Benign lipomatous neoplasm, unspecified Plan: Repeat US in 5 years (2) ETOH abuse: Code(s): F10.10 - Alcohol abuse, uncomplicated Plan: Advised to cut back on alcohol or stop drinking altogether (3) HTN (hypertension): Code(s): I10 - Essential (primary) hypertension Plan: Starting amlodipine, encouraged to get labs drawn, will follow up with pt Plan The patient agreed to the use of a certified medical asst for this encounter. Scribed for SEKOU Galo by humberto Grove scribe, on 06/22/2023 at 08:55 EST. Orders: Orders Complete Blood Count Auto Diff Today I10 - Essential (primary) hypertension UA CC w/rflx Micro + Cult Today I10 - Essential (primary) hypertension Lipid Panel Today I10 - Essential (primary) hypertension Comprehensive [place]. Panel Fast Today I10 - Essential (primary) hypertension TSH reflex Free T4 Today I10 - Essential (primary) hypertension Medications: New amlodipine 2.5 mg PO DAILY 90 tabs 0RF Coding Level of Care Code Est Pt Level 3 (16093) Diagnoses Angiomyolipoma D17.9 ETOH abuse F10.10 HTN (hypertension) I10
[2023-06-22 08:45] VITALS: BP 140/90; PULSE 87; O2SAT 97
== END 2023-06-22 10:53 | disposition home or self-care (01) ==
PROVIDERS: PCP Nurse Practitioner Family; Visit Provider Nurse Practitioner Family
DX: D17.9 Benign lipomatous neoplasm, unspecified (principal); F10.10 Alcohol abuse, uncomplicated; I10 Essential (primary) hypertension
CPT/HCPCS: 99213

== ENCOUNTER 2023-07-06 08:36 | Outpatient (REF) | payer OTHER, SELFPAY ==
[2023-07-06 10:20] LABS: MANUAL DIFF FLAG NO
[2023-07-06 10:34] LABS: Basophils Absolute Auto 0.1 X10*3/uL (0.0-0.2); Basophils Percent Auto 0.9 % (0-2); Eosinophils Absolute Auto 0.1 X10*3/uL (0.0-0.4); Eosinophils Percent Auto 2.2 % (0-4); Hematocrit 44.5 % (42.0-52.0); Hemoglobin 15.3 g/dl (14.0-18.0); Imm Gran Abs Auto 0.03 X10*3/uL (0.00-0.03); Imm Gran Pct Auto 0.5 % (0.0-0.4); Lymphocytes Absolute Auto 1.6 X10*3/uL (1.2-4.9); Lymphocytes Percent Auto 24.6 % (20-40); Mean Corpuscular HGB Conc 34.4 g/dl (31.0-36.0); Mean Corpuscular Hemoglobin 31.2 pg (27.0-33.0); Mean Corpuscular Volume 90.6 fL (80.0-98.0); Mean Platelet Volume 11.3 fL (9.4-12.4); Monocytes Absolute Auto 0.6 X10*3/uL (0.1-1.2); Monocytes Percent Auto 9.2 % (2-11); Neutrophils Percent Auto 62.6 % (45-73); Platelet Count 273 X10*3/uL (160-400); Red Blood Count 4.91 X10*6/uL (4.60-5.80); Red Cell Distribution Width 12.4 % (11.0-16.0); White Blood Count 6.4 X10*3/uL (4.8-10.8)
[2023-07-06 10:47] LABS: Appearance Urine Clear; Color Urine Yellow; Glucose Urine UA Negative (Negative); Leukocyte Esterase Urine Negative (Negative); Nitrite Urine Negative (Negative); PH 5.5 (5.0-9.0); UMIC TRIGGER UACC YES; Urine Blood Small (1+) (Negative); Urine Ketones Trace mg/dL (Negative); Urine Protein Trace mg/dL (Neg-Trace)
[2023-07-06 11:08] LABS: Bacteria Urine None Seen (None Seen); Hyaline Casts Urine 0-2 /LPF (0-2); RBC Urine 0-2 /HPF (0-2); Squamous Epithelial Cell Urine 0-2 /HPF (0-2); WBC Urine 0-5 /HPF (0-5)
[2023-07-06 11:47] LABS: Alanine Aminotransferase 40 U/L (0-40); Albumin Level 4.2 g/dL (3.5-5.0); Alkaline Phosphatase 114 U/L (39-117); Anion Gap 13 (12-20); Aspartate Amino Transferase 32 U/L (5-37); Bilirubin Total 0.7 mg/dL (0.0-1.0); Blood Urea Nitrogen 13 mg/dL (9-16); Calcium 9.4 mg/dL (8.4-10.2); Carbon Dioxide 24 mmol/L (22-29); Chloride 105 mmol/L (96-108); Cholesterol 152 mg/dL (<200); Estimated Glomerular Filt Rate > 60; Glucose Fasting 118 mg/dL (60-99); HDL Cholesterol 50 mg/dL (>40); LDL Cholesterol Calculated 74 mg/dL (<100); Potassium 3.9 mmol/L (3.3-5.1); Sodium 138 mmol/L (135-145); Total Protein 7.6 g/dL (6.5-8.0); Triglycerides 142 mg/dL (<150)
[2023-07-06 11:50] LABS: TSH reflex Free T4 0.77 uIU/mL (0.32-4.0)
== END 2023-07-06 08:37 | disposition home or self-care (01) ==
LOC: HO.HMGCLDS 08:36
PROVIDERS: PCP Nurse Practitioner Family; Visit Provider Nurse Practitioner Family
DX: I10 Essential (primary) hypertension (principal)
CPT/HCPCS: 36415; 80053; 80061; 81001; 84443; 85025

== ENCOUNTER 2023-09-08 09:02 | Outpatient (REF) | payer OTHER, SELFPAY ==
[2023-09-08 12:06] LABS: Alanine Aminotransferase 37 U/L (0-40); Albumin Level 4.1 g/dL (3.5-5.0); Alkaline Phosphatase 113 U/L (39-117); Anion Gap 15 (12-20); Aspartate Amino Transferase 34 U/L (5-37); Bilirubin Total 0.6 mg/dL (0.0-1.0); Blood Urea Nitrogen 12 mg/dL (9-16); Calcium 9.6 mg/dL (8.4-10.2); Carbon Dioxide 23 mmol/L (22-29); Chloride 106 mmol/L (96-108); Cholesterol 165 mg/dL (<200); Estimated Glomerular Filt Rate > 60; Glucose Fasting 117 mg/dL (60-99); HDL Cholesterol 68 mg/dL (>40); LDL Cholesterol Calculated 74 mg/dL (<100); Sodium 140 mmol/L (135-145); Total Protein 7.3 g/dL (6.5-8.0); Triglycerides 119 mg/dL (<150)
== END 2023-09-08 09:03 | disposition home or self-care (01) ==
LOC: HO.HMGCLDS 09:02
PROVIDERS: PCP Nurse Practitioner Family; Visit Provider Nurse Practitioner Family
DX: E78.5 Hyperlipidemia, unspecified (principal)
CPT/HCPCS: 36415; 80053; 80061

== ENCOUNTER 2023-10-26 08:02 | Outpatient (AMB) | payer OTHER, SELFPAY ==
[2023-10-26 08:04] VITALS: BP 118/74; PULSE 99; O2SAT 97; BMI 31.1
--- NOTE | 2023-10-26 08:04 | A.OFFPC_ITS ---
Vital Signs 10/26/23 08:04 Height 5 ft 11 in Weight 223 lb BMI 31.1 BP 118/74 Blood Pressure Location Rt brachial Position Sitting Pulse 99 Pulse Source Pulse Oximeter Pulse Oximetry (%) 97 Oxygen Delivery Method Room Air Intake Visit Reasons: 4 month follow-up Intake Note: Pt is here today for his 4 mo. f/u Allergies No Known Allergies Allergy (Verified 10/26/23 08:05) Tobacco use date assessed: 10/26/23 Dental Screening Dental Screen Date: 10/26/23 Did you have a dental visit in the last 12 months?: Yes Did you have a dental problem in the last 6 months where you did not have access to dental care?: No Was dental information given to patient?: Patient has dentist HPI 4 month follow-up HPI Details HTN: Blood pressure is stable, managed with losartan 25mg. Denies chest pain, shortness of breath, headache, dizziness, and blurred vision. PFSH Surgical History H/O prostatectomy H/O colonoscopy Family History Father No problems noted. Mother No problems noted. Social History Housing: House Alcohol intake: current Alcohol intake frequency: 0-2 drinks per day Patient Tobacco Use Status: Former Tobacco user Tobacco use type: Cigarette Cigarette Packs Per Day: 1 Cigarettes Per Day: 20 Years Smoked: 20 e-Cigarette/Vaping Use: Former Use Second Hand Smoke Exposure: No Current occupational status: employed Cognitive needs: No Hearing needs: No Vision needs: No Questionnaire Thrive Questionnaire Date Thrive assessed: 10/26/23 I am a: Patient AUDIT C Alcohol Use Questionnaire (AUDIT-C) 1. How often do you have a drink containing alcohol?: 4 or more times a week Total Score: 4 JAMES-7 AMB Questionnaire JAMES-7 Date JAMES - 7 assessed: 06/22/23 Source: Developed by Drs. Ishmael Parks, Melissa Huffman, Domo Duron and colleagues, with an educational darshan from [employer]. Review of Systems Const Reports as per HPI Physical exam (Primary Care) Vital Signs: Last Vital Signs Pulse 99 10/26/23 08:04 BP 118/74 10/26/23 08:04 Pulse Ox 97 10/26/23 08:04 Oxygen Delivery Method Room Air 10/26/23 08:04 BMI result Body Mass Index 31.1 Tobacco/Smoking Status: Tobacco use Status Tobacco use date assessed 10/26/23 10/26/23 08:08 Patient Tobacco Use Status Former Tobacco user 10/26/23 08:08 Tobacco use type Cigarette 10/26/23 08:08 e-Cigarette/Vaping Use Former Use 10/26/23 08:08 Thrive Assessment: Date of Thrive Assessment Date Thrive assessed 10/26/23 10/26/23 08:08 Const General: cooperative Nutritional Appearance: obese Orientation/consciousness: patient oriented x3 Neck Other: supraclavicular swelling, left>right, very fluctuant, ? fluid vs fatty tissue, no tenderness with palpation Neck: Yes no lymphadenopathy Resp Auscultation: clear to auscultation bilaterally Cardio Rate: regular rate Rhythm: regular rhythm Heart sounds: S1 normal heart sound present and S2 normal heart sound present GI Palpation (GI): Soft to palpation and nontender Auscultation: normal bowel sounds Neuro General: patient oriented x3 Psych Appearance: grossly normal Mental Status: mental status grossly normal Speech and movement: Normal speech and movement present Affect: normal affect Attitude: cooperative Thought process: Normal thought process present Thought content: Normal thought content present Insight: Good insight present (Psych) Judgement: Good judgement present (Psych) Assessment and Plan Assessment & Plan (1) HTN (hypertension): Code(s): I10 - Essential (primary) hypertension Plan: Stable. recommended getting a bigger cuff for home use. (2) Neck swelling: Code(s): R22.1 - Localized swelling, mass and lump, neck Plan: US ordered, no fevers, chills, tenderness with palpation (3) Screening PSA (prostate specific antigen): Code(s): Z12.5 - Encounter for screening for malignant neoplasm of prostate Plan: PSA ordered Plan The patient agreed to the use of a special forces medical sergeant for this encounter. Scribed for SEKOU Galo by humberto Grove scribe, on 10/26/2023 at 08:10 EST. Orders: Orders Complete Blood Count Auto Diff Today I10 - Essential (primary) hypertension UA CC w/rflx Micro + Cult Today I10 - Essential (primary) hypertension US soft tiss head and/or neck Today R22.1 - Localized swelling, mass and lump, neck Comprehensive [place]. Panel Fast Today I10 - Essential (primary) hypertension TSH reflex Free T4 Today I10 - Essential (primary) hypertension Lipid Panel Today I10 - Essential (primary) hypertension Prostate Specific Antigen Scr Today Z12.5 - Encounter for screening for malignant neoplasm of prostate Coding Level of Care Code Est Pt Level 3 (67480) Diagnoses HTN (hypertension) I10 Neck swelling R22.1 Screening PSA (prostate specific antigen) Z12.5
== END 2023-10-26 08:30 | disposition home or self-care (01) ==
PROVIDERS: PCP Nurse Practitioner Family; Visit Provider Nurse Practitioner Family
DX: I10 Essential (primary) hypertension (principal); R22.1 Localized swelling, mass and lump, neck; Z12.5 Encounter for screening for malignant neoplasm of prostate
CPT/HCPCS: 99213

== ENCOUNTER 2023-11-20 08:22 | Outpatient (REF) | payer OTHER, SELFPAY ==
--- NOTE | ~2023-11-20 | US_ITS ---
EXAMINATION: US SOFT TISSUE OF THE NECK CLINICAL INFORMATION: Localized swelling, mass and lump, neck. Supraclavicular swelling bilaterally, left greater than right. COMPARISON: None available. TECHNIQUE: Linear transducer grayscale and color Doppler examination of the left supraclavicular neck with right side for comparison. FINDINGS: The cutaneous, subcutaneous, muscular and fascial planes are unremarkable. No mass or fluid collection is seen. There is no lymphadenopathy. No foreign body is seen. US/US soft tiss head and/or neck IMPRESSION: Unremarkable examination. Electronically signed by: Lauro Dominguez MD 11/26/2023 05:04 PM EDT
== END 2023-11-20 08:23 | disposition home or self-care (01) ==
LOC: HO.HMGCX 08:22
PROVIDERS: PCP Nurse Practitioner Family; Visit Provider Nurse Practitioner Family
DX: R22.1 Localized swelling, mass and lump, neck (principal)
CPT/HCPCS: 76536

== ENCOUNTER 2023-12-28 09:20 | Outpatient (REF) | payer OTHER, SELFPAY ==
[2023-12-28 13:17] LABS: MANUAL DIFF FLAG NO
[2023-12-28 13:25] LABS: Appearance Urine Clear; Color Urine Yellow; Glucose Urine UA Negative (Negative); Leukocyte Esterase Urine Negative (Negative); Nitrite Urine Negative (Negative); Urine Blood Negative (Negative); Urine Ketones Negative (Negative); Urine Protein Trace mg/dL (Neg-Trace)
[2023-12-28 13:25] LABS: Basophils Absolute Auto 0.1 X10*3/uL (0.0-0.2); Basophils Percent Auto 0.7 % (0-2); Eosinophils Absolute Auto 0.1 X10*3/uL (0.0-0.4); Eosinophils Percent Auto 1.4 % (0-4); Hematocrit 43.3 % (42.0-52.0); Hemoglobin 14.6 g/dl (14.0-18.0); Imm Gran Abs Auto 0.02 X10*3/uL (0.00-0.03); Imm Gran Pct Auto 0.3 % (0.0-0.4); Lymphocytes Absolute Auto 1.8 X10*3/uL (1.2-4.9); Lymphocytes Percent Auto 26.1 % (20-40); Mean Corpuscular HGB Conc 33.7 g/dl (31.0-36.0); Mean Corpuscular Hemoglobin 31.2 pg (27.0-33.0); Mean Corpuscular Volume 92.5 fL (80.0-98.0); Mean Platelet Volume 11.7 fL (9.4-12.4); Monocytes Absolute Auto 0.5 X10*3/uL (0.1-1.2); Monocytes Percent Auto 6.6 % (2-11); Neutrophils Absolute Auto 4.5 x10*3/uL (2.0-8.3); Neutrophils Percent Auto 64.9 % (45-73); Platelet Count 248 X10*3/uL (160-400); Red Blood Count 4.68 X10*6/uL (4.60-5.80); Red Cell Distribution Width 12.4 % (11.0-16.0)
[2023-12-28 13:57] LABS: Alanine Aminotransferase 46 U/L (0-40); Albumin Level 4.1 g/dL (3.5-5.0); Alkaline Phosphatase 111 U/L (39-117); Anion Gap 12 (12-20); Aspartate Amino Transferase 41 U/L (5-37); Bilirubin Total 0.5 mg/dL (0.0-1.0); Blood Urea Nitrogen 12 mg/dL (9-16); Calcium 9.2 mg/dL (8.4-10.2); Carbon Dioxide 26 mmol/L (22-29); Chloride 107 mmol/L (96-108); Cholesterol 161 mg/dL (<200); Estimated Glomerular Filt Rate > 60; Glucose Fasting 118 mg/dL (60-99); HDL Cholesterol 68 mg/dL (>40); LDL Cholesterol Calculated 79 mg/dL (<100); Potassium 4.3 mmol/L (3.3-5.1); Sodium 141 mmol/L (135-145); TSH reflex Free T4 0.72 uIU/mL (0.32-4.0); Total Protein 7.1 g/dL (6.5-8.0); Triglycerides 71 mg/dL (<150)
== END 2023-12-28 09:21 | disposition home or self-care (01) ==
LOC: HO.HMGCLDS 09:20
PROVIDERS: PCP Nurse Practitioner Family; Visit Provider Nurse Practitioner Family
DX: Z12.5 Encounter for screening for malignant neoplasm of prostate (principal); I10 Essential (primary) hypertension
CPT/HCPCS: 36415; 80053; 80061; 81003; 84153; 84443; 85025

== ENCOUNTER 2024-04-01 08:21 | Day surgery (SDC) | payer OTHER, SELFPAY ==
--- OUTSIDE RECORDS SUMMARY | 2024-03-18 14:06 | XMS_ITS ---
Author Organization [facility] Address [address] [place] [phone] Care Team Providers Care Photogeologist Name Role Phone NEEL GARCIA Primary Care Provider Manjinder Johnson Jr [phone] REASON FOR VISIT Pt no show Encounters Encounter Location Date Provider Diagnosis [facility] [address] [place] [phone] 12/02/2023 Manjinder Torres Jr PLAN OF TREATMENT Next Appt Details Provider Name:Manjinder diaz Jr, 04/01/2024 11:30:00 AM, [address] [place] [address] , [place], [place], [phone],
--- OUTSIDE RECORDS SUMMARY | 2024-03-18 14:06 | XMS_ITS ---
Author Organization [facility] Address [address] [place] [address] Care Team Providers Care Photo Specialist Name Role Phone NELE GARCIA Primary Care Provider Víctor Torres Jr, Manjinder Harrell [phone] REASON FOR VISIT Patient presents today for a COLON SCREENING Encounters Encounter Location Date Provider Diagnosis [facility] [address] [place] [address] 12/02/2023 Manjinder Torres Jr PLAN OF TREATMENT Next Appt Details Provider Name:Manjinder diaz Jr, 04/01/2024 11:30:00 AM, [address] , [place], [place], [phone],
--- OUTSIDE RECORDS SUMMARY | 2024-03-18 14:07 | XMS_ITS | Patient Health Record ---
Author Organization [facility] Address [address] [place] [address] Care Team Providers Care Systems Analyst Name Role Phone BARRERANEEL MOORE Primary Care Provider Manjinder Johnson Jr Unavailable [phone] ALLERGIES No Known Allergies REASON FOR REFERRAL Referring Provider First Name Jennifer Referring Provider Last Name Betty Referring Provider Speciality Internal M edicine Referred Organization [facility] Referred Provider Manjinder Scott Jr Referred Address [address],[place], [place],[address], Referred Provider Specialty Gastroentero logy General Notes Aviva Hernandez 024 03:02:16 PM EDT > REQUESTED A FAMILY HEALTH PLAN REFERRAL FROM DR LAKHANI OFFICE FOR VISIT WITH DR SCOTT ON (SPOKE WITH [facility]) [phone] Referral Priority Routine MEDICATIONS Medication SIG (Take, Route, Frequency, Duration) Notes Start Date End Date Status Losartan Potassium 25 MG Oral for 90 Active Ulsyy-5-mdfd Ethyl Esters 1 GM Oral for 90 Active amLODIPine Besylate 2.5 MG Oral for 90 Active Sildenafil Citrate 100 MG 1 tablet as ne eded Orally Once a day for 30 day(s) 03/07/2024 Active Vitamin D3 Active Atorvastatin Calcium 20 MG 1 tablet Oral ly Once a day Active IMMUNIZATIONS Vaccine Route Administration Date Status Comme nts Influenza Unknown 11/07/2017 Administered Influenza Unknown 03/07/2024 Refused SOCIAL HISTORY Tobacco Use: Social History Observation Description Date Details (start date - stop date) Former Smoker NA - NA Sex Assigned At : Social History Observation Description Sex Assigned At Unknown Tobacco Use/Smoking Question Answer Notes Patient is a former smoker How long has it been since you last smoked? 1-5 years Alcohol Screen Question Answer Notes Did you have a drink contain ing alcohol in the past year? Yes How often did you have a dri nk containing alcohol in the past year? 2 to 4 times a month (2 points) How many drinks did you have on a typical day when you were drinking in the past year? 7 to 9 drinks (3 points) How often did you have 6 or more drinks on one occasion in the past year? Monthly (2 points) Points 7 Interpretation Positive PROBLEMS Problem Type ICD Code Onset Dates Problem Status W/U Status Risk SNOMED Code Notes Problem Colon cancer screening (Z12.11) Active confirmed 270117270 Problem Encounter for other preprocedural examination (Z01.818) Active confirmed 609993763 Problem Long-term current use of high risk medication other than anticoagulant (Z79.899) Active confirmed 464381203 Problem Personal history of colonic polyps (Z86.0100) Active confirmed 698154273 VITAL SIGNS Temperature 97.3 degrees Fahrenheit 03/07/2024 Blood pressure diastolic 00 mm Hg 03/07/2024 Height 71 in 03/07/2024 Blood pressure systolic 000 mm Hg 03/07/2024 Weight 226 lb 4 oz lbs 03/07/2024 BMI 31.55 kg/m2 03/07/2024 Encounters Encounter Location Date Provider Diagnosis [facility] [address] [place] [phone] 12/02/2023 Manjinder Scott Jr [facility] [address] [place] [phone] 03/07/2024 Manjinder Scott Jr Colon cancer screening Z12.11 ; Encounter for other preprocedural examination Z01.818 ; Personal history of colonic polyps Z86.0100 and Long-term current use of high risk medication other than anticoagulant Z79.899 [facility] [address] [place] [phone] 12/02/2023 Manjinder Scott Jr ASSESSMENTS Encounter Date Diagnosis Assessment Notes Treatment Notes Treatment Clinical Notes 03/07/2024 Colon cancer screening (ICD-10 - Z12.11) Colonoscopy material was printed 03/07/2024 Encounter for other preprocedural examination (ICD-10 - Z01.818) 03/07/2024 Personal history of colonic polyps (ICD-10 - Z86.0100) 03/07/2024 Long-term current use of high risk medication other than anticoagulant (ICD-10 - Z79.899) PLAN OF TREATMENT Future Test Test Name Order Date COLONOSCOPY 07/30/2012 COLONOSCOPY 02/25/2018 COLONOSCOPY 03/10/2024 Next Appt Details Provider Name:Manjinder diaz Jr, 04/01/2024 11:30:00 AM, [address] [place] [address] , [place], [place], [phone], Insurance Providers Payer Name Payer Address Payer Phone Subscriber Number Group Number Insured Name Patient Relationship to Insured Coverage Start Date Coverage End Date [facility] (REFERRA L NEEDED) [address] [place] [phone] [id number] BRAD TRAN Self - patient is the insured MEDICAL (GENERAL) HISTORY Medical History History ICD Code Hypertension Hyperlipidemia Elevated alkaline phosphatase Kidney angiomyolipoma Colonoscopy 05/25, hyperplast ic polyp, five-year followup for prior history of adenomas. Surgical History Surgery Date(Month/Year)
[2024-03-30 14:39] VITALS: BMI 31.5
--- NOTE | 2024-03-31 09:30 | HO.ANESPROP2 ---
Documented by User: Anna Robertson NP 03/31/24 09:30 HPI - Anesthesia Eval Consult details Narrative: 63yo M for Colonoscopy PMFSH Active Problems Active Problems: All Active Problems Neck swelling (Acute) Dyslipidemia (Acute) HTN (hypertension) (Acute) Angiomyolipoma (Acute) ETOH abuse (Acute) Renal cyst (Acute) Encounter for screening for COVID-19 (Acute) High triglycerides (Acute) Elevated alkaline phosphatase level (Acute) Screening PSA (prostate specific antigen) (Acute) Physical exam (Acute) Gross hematuria (Acute) Varicose veins of left lower extremity with inflammation (Acute) Cellulitis (Acute) Leg edema, left (Acute) Past Medical History Medical History Angiomyolipoma of kidney Family History Family History Father No problems noted. Mother No problems noted. Surgical History Surgical History H/O prostatectomy H/O colonoscopy Social History Social History Housing: House Are you a primary palliative care nurse practitioner to a significant other at home: No Do you presently have visiting nurse or other home services: No Alcohol intake: current Alcohol intake frequency: 3 or more drinks per day Patient Tobacco Use Status: Former Tobacco user Tobacco use type: Cigarette Cigarette Packs Per Day: 1 Cigarettes Per Day: 20 Years Smoked: 20 Smoked in Last 30 Days: No e-Cigarette/Vaping Use: Former Use Second Hand Smoke Exposure: No Use of substances other than those prescribed or required for medical reasons: No Have you been hit, kicked, punched, or otherwise hurt by someone within the past year? If so, by whom?: No Are you DNR?: No Advance Directives: No Advance Directives Information Provided: No Advance Directives on File: No Recently lost weight without trying: No How much weight loss: Not applicable Eating poorly because of decreased appetite: No Nutrition screen score: 0 Nutrition Risks: No Nutritional Risk Poor oral hygiene: No Current occupational status: employed Cognitive needs: No Hearing needs: No Vision needs: No Meds Allergies Allergy/AdvReac Type Severity Reaction Status Date / Time No Known Allergies Allergy Verified 04/01/24 10:27 Home Medications ?Medication ?Instructions ?Recorded ?Confirmed ?Last Taken ?Type cholecalciferol (vitamin D3) 50 50 mcg PO DAILY 05/17/20 04/01/24 Unknown History mcg (2,000 unit) capsule amlodipine 2.5 mg tablet 2.5 mg PO DAILY 03/30/24 04/01/24 04/01/24 History Exam Height,Weight and Vital Signs: Height 5 ft 11 in Weight 102.512 kg Assessment and Plan Assessment Anesthesia Assessment: Chart Reviewed Documented by User: Vanessa Rendon MD 04/01/24 11:56 PMFSH Past Medical History Medical History Angiomyolipoma of kidney Family History Family History Father No problems noted. Mother No problems noted. Surgical History Surgical History H/O prostatectomy H/O colonoscopy History of Problems with Anesthesia: No Social History Social History Housing: House Are you a primary palliative care nurse practitioner to a significant other at home: No Do you presently have visiting nurse or other home services: No Alcohol intake: current Alcohol intake frequency: 3 or more drinks per day Patient Tobacco Use Status: Former Tobacco user Tobacco use type: Cigarette Cigarette Packs Per Day: 1 Cigarettes Per Day: 20 Years Smoked: 20 Smoked in Last 30 Days: No e-Cigarette/Vaping Use: Former Use Second Hand Smoke Exposure: No Use of substances other than those prescribed or required for medical reasons: No Have you been hit, kicked, punched, or otherwise hurt by someone within the past year? If so, by whom?: No Are you DNR?: No Advance Directives: No Advance Directives Information Provided: No Advance Directives on File: No Recently lost weight without trying: No How much weight loss: Not applicable Eating poorly because of decreased appetite: No Nutrition screen score: 0 Nutrition Risks: No Nutritional Risk Poor oral hygiene: No Current occupational status: employed Cognitive needs: No Hearing needs: No Vision needs: No Meds Allergies Allergy/AdvReac Type Severity Reaction Status Date / Time No Known Allergies Allergy Verified 04/01/24 10:27 Home Medications ?Medication ?Instructions ?Recorded ?Confirmed ?Last Taken ?Type cholecalciferol (vitamin D3) 50 50 mcg PO DAILY 05/17/20 04/01/24 Unknown History mcg (2,000 unit) capsule amlodipine 2.5 mg tablet 2.5 mg PO DAILY 03/30/24 04/01/24 04/01/24 History Exam Airway Mallampati Class: III TM Dist: >3cm Neck ROM: Full Loose/Missing/Broken Teeth: No Heart: RRR Lungs: CTA Assessment and Plan Assessment Anesthesia Assessment: Anesthesia Plan Discussed Final Anesthetic Review History of Problems with Anesthesia: No NPO: Yes ASA Class: III Final Preanesthetic Review: Meds/Allgs Chart Reviewed, Consent Obtained/Reviewed and Anes Risks/Benef Reviewed Patient Risk: Intermediate Procedure Risk: Low Anesthetic Plan Anesthetic Plan: MAC: Disposition: Standard PACU
[2024-04-01 10:32] VITALS: BP 142/83; PULSE 73; RESP 16; TEMP 36.7; O2SAT 98; BMI 30.5
[2024-04-01] MEDS: Lactated Ringers 1,000 ML 100 ML IVCONT (10:41)
--- NOTE | 2024-04-01 11:09 | MHC.SHP ---
Pre-Procedural Eval Section A - 24 Hr Update-Section A only Date of Service: 04/01/24 The patient is an INPATIENT: No Changes since office visit: No Cold of Flu in the past 2 weeks, No New Medical Problems, No Changes in Medication and No Patient answered all questions The patient has been examined within 24 hours of the surgical procedure. The History & Physical has been completed within 30 days and I have reviewed it.: Yes Section B - Complete if H&P > 30 days Chief Complaint: screening Allergies: Allergies Allergy/AdvReac Type Severity Reaction Status Date / Time No Known Allergies Allergy Verified 04/01/24 10:27 Plan I have reviewed the history and physical and performed a pertinent physical examination on my patient. No changes have occurred unless specified. Time Spent With Patient Time: Total time managing care of this patient today ____ minutes.
[2024-04-01 12:19] VITALS: BP 104/50; PULSE 78; RESP 18; TEMP 36.6; O2SAT 98
[2024-04-01 12:43] VITALS: BP 122/84; PULSE 83; RESP 17; TEMP 36.1; O2SAT 99
--- NOTE | 2024-04-01 12:44 | OP_ITS ---
DATE OF SERVICE: 04/01/2024 SURGEON: Manjinder Torres MD INDICATIONS: Colon cancer screening. PREOPERATIVE DIAGNOSIS: POSTOPERATIVE DIAGNOSIS: PROCEDURE PERFORMED: Colonoscopy to the cecum with snare polypectomy. ESTIMATED BLOOD LOSS: COMPLICATIONS: ANESTHESIA: Monitored anesthesia care. ASSISTANTS: SPECIMENS: DESCRIPTION OF PROCEDURE: A history and physical was performed. The risks and benefits of the procedure were explained to the patient. Informed consent was obtained. The patient was placed in the left lateral decubitus position. A digital rectal exam was performed and was found to be normal. The Olympus pediatric video colonoscope was introduced into the rectum and advanced to the cecum. The cecum was identified by transillumination, palpation, and identification of ileocecal valve. Examination was performed. The scope was removed. He tolerated the procedure well and was returned to the recovery area in stable condition. FINDINGS: The terminal ileum was not examined. The visualized colonic mucosa was normal. The quality of the prep was good with some stool coating the mucosa in the right colon. This was washed and suctioned. One polyp in the right colon measured approximately 6 mm. This was removed with a snare and recovered via suction. No other polyps were identified. Retroflexed examination showed some small internal hemorrhoids. There were few diverticula in the sigmoid. IMPRESSION: Colon polyp. RECOMMENDATION: Follow up the biopsy results. MD AGUSTIN Streeter/CARAL / [id number]
== END 2024-04-01 13:15 | disposition home or self-care (01) ==
PROVIDERS: PCP Nurse Practitioner Family; Visit Provider Internal Medicine Gastroenterology
PROC: 0DJD8ZZ Inspection of Lower Intestinal Tract, Via Natural or Artificial Opening Endoscopic (ICD-10-PCS; CPT 45378; principal; 2024-04-01 11:30)
DX: Z12.11 Encounter for screening for malignant neoplasm of colon (principal); Z86.0101 Personal history of adenomatous and serrated colon polyps; D12.2 Benign neoplasm of ascending colon; K57.30 Diverticulosis of large intestine without perforation or abscess without bleeding; K64.8 Other hemorrhoids; D17.71 Benign lipomatous neoplasm of kidney; I10 Essential (primary) hypertension; E78.5 Hyperlipidemia, unspecified; R74.8 Abnormal levels of other serum enzymes; Z79.899 Other long term (current) drug therapy; Z87.891 Personal history of nicotine dependence
CPT/HCPCS: 45385; 88305; J2003; J2250; J2704

== ENCOUNTER 2024-04-28 07:17 | Outpatient (AMB) | payer MEDICARE, OTHER, SELFPAY ==
[2024-04-28 07:38] VITALS: BP 134/80; PULSE 84; RESP 16; TEMP 36.5; O2SAT 97; BMI 30.7
--- NOTE | 2024-04-28 07:38 | AM.OFFVISMDC ---
Intake Vital Signs 04/28/24 07:38 Height 5 ft 11 in Weight 220 lb BMI 30.7 BP 134/80 Blood Pressure Location Rt brachial Position Sitting Respiration 16 Pulse 84 Pulse Source Pulse Oximeter Temp 97.7 F Temp Source Oral Pulse Oximetry (%) 97 Oxygen Delivery Method Room Air Intake Visit Reasons: AWV G0438 Intake Note: Pt is here today for his AWV: last colonoscopy 04/01/24 Allergies No Known Allergies Allergy (Verified 04/28/24 07:39) HPI AWV G0438 HPI Details here for a AWV, ppp in scan pile, ccc in scan pile HPI Comments History of Present Illness Details Chief Complaint The patient presents with left knee pain. History of Present Illness The patient is a 64-year-old male presenting with knee pain following a fall. He reported the fall occurred approximately one month ago, landing on his left knee. He describes discomfort primarily through the inferior lateral aspect of the left knee. He denies any swelling or redness associated with the injury. The pain is noted to occur intermittently and is exacerbated by movements such as extension and flexion, although these motions were not causing discomfort during the visit. There is no report of prior similar injury to the knee, and he has not noticed any other complicating factors since the incident. Social History Health Maintenance Review of Systems - Musculoskeletal: Reports knee pain with movements such as extension and flexion. Denies swelling or redness. Physical Exam General: Cooperative, healthy appearing, comfortable, no acute distress and well developed Orientation: Patient oriented x3 Limitations: No limitations Head: Normal to inspection Ears: Hearing grossly normal bilaterally Nose: Normal external nose present Face and sinus: Normal facial exam Eyes: Appearance normal, both eyes and all related structures Neck: Normal visual inspection and Yes full ROM Respiratory: Normal respiratory effort and able to speak in complete sentences. Clear to auscultation bilaterally Cardiovascular: Regular rate and rhythm. Normal S1 and S2 GI: Normal to inspection. Soft to palpation and nontender Skin: No rashes or lesions noted Neuro: Patient oriented x3 Extremities: Normal to inspection; patient reports discomfort in the inferior lateral aspect of the left knee, no redness or swelling, no pain with palpation, able to extend and flex without discomfort today, positive patellar reflexes, pedis pulse present, neg lachmans and mccmurrays Results Plan - I recommend obtaining an X-ray of the left knee to assess for potential injury or other issues contributing to the pain. - Consideration for physical therapy may follow pending diagnostic imaging results if structural damage is confirmed. - Continue monitoring for any worsening of symptoms or new developments such as swelling or significant changes in mobility. Discussion Notes I discussed with the patient the probability of strain or soft tissue injury given the mechanism of injury and presentation. The management plan involves obtaining an X-ray to elucidate any underlying bony injury. I addressed the reasons for pursuing imaging, emphasizing that understanding the full extent of any injury is crucial before considering further interventions like physical therapy. Assurance was provided that there was no apparent urgent issue at present, given the lack of swelling or severe pain. I advised the patient to monitor for any worsening conditions and discussed the possibility of pursuing physical therapy based on imaging results. He was informed of potential non-surgical interventions and precautions to prevent aggravation of the condition. Patient Instructions - Proceed with an X-ray as ordered to further evaluate the knee injury. - Monitor for any swelling, increased pain, or redness in the knee. - Avoid activities that exacerbate knee pain until further notice. - Return for follow-up consultation to discuss X-ray results and subsequent steps. [facility] Medical History Angiomyolipoma of kidney Surgical History H/O prostatectomy H/O colonoscopy Family History Father No problems noted. Mother No problems noted. Social History Housing: House Are you a primary home care coordinator to a significant other at home: No Do you presently have visiting nurse or other home services: No Alcohol intake: current Alcohol intake frequency: 3 or more drinks per day Patient Tobacco Use Status: Former Tobacco user Tobacco use type: Cigarette Cigarette Packs Per Day: 1 Cigarettes Per Day: 20 Years Smoked: 20 e-Cigarette/Vaping Use: Former Use Second Hand Smoke Exposure: No Current occupational status: employed Cognitive needs: No Hearing needs: No Vision needs: No Questionnaire Medicare Wellness Checkup What [age] What gender do you identify with?: male During the past 4 weeks, how much have you been bothered by emotional problems such as feeling anxious, depressed, irritable, sad or downhearted, and blue?: not at all During the past 4 weeks, has your physical & emotional health limited your social activities with family, friends, neighbors, or groups?: not at all During the past 4 weeks, how much bodily pain have you generally had?: mild pain During the past 4 weeks, was someone available to help you if you needed & wanted help?: yes, as much as I wanted During the past 4 weeks, what was the hardest physical activity you could do for at least 2 minutes?: moderate Can you get to places out of walking distance without help? (For eg., can you travel alone on buses, taxis or drive your car?): Yes Can you go shopping for groceries or clothes without someone's help?: Yes Can you prepare your own meals?: Yes Can you do your housework without help?: Yes Because of any health problems, do you need the help of another person with your personal care needs such as eating, bathing, dressing or getting around the house?: No Can you handle your own money without help?: Yes During the past 4 weeks, how would you rate your health in general?: good During the past 4 weeks how have things been going for you?: very well; could hardly better Are you having difficulties driving your car?: no Do you always fasten your seat belt when you are in a car?: yes, usually During past 4 weeks, have you been bothered by the following: never: Falling or dizzy when standing up, Sexual problems?, Trouble eating well?, Teeth or denture problems?, Problems using the telephone? and Tiredness or fatigue? Have you fallen 2 or more times in the past year?: No Are you afraid of falling?: No Are you a smoker?: no During the past 4 weeks, how many drinks of wine, beer, or other alcoholic beverages did you have?: 10 or more per week Do you exercise for about 20 minutes 3 or more times a week?: no, I usually do not exercise this much Have you been given information to help with the following?: no: Hazards in your house that might hurt you? and no: Keeping track of your medications? How often do you have trouble taking medicines the way you have been told to take them?: I always take medicine as prescribed How confident are you that you can control & manage most of your health problems?: very confident What is your race?: White Mini Mental State Exam (MMSE) Orientation What is the (year) (season) (date) (day) (month)?: year, season, date, day and month Where are we (state) (county) (town or city) (hospital) (floor)?: state, county, town or city, hospital/clinic and floor Registration Name of 3 unrelated objects clearly and slowly, then ask patient to repeat all 3 of them. (1st repeat determines score. Make sure they can repeat all three): object 1, object 2 and object 3 Attention & Calculation (CHOOSE ONE) Spell WORLD backwards (DLROW): 5 letters Recall Ask patient to repeat the 3 items from question #3.: object 1, object 2 and object 3 Language Show patient a wristwatch & ask what it is. Repeat for pencil.: watch Ask the patient to repeat the phrase 'No ifs, ands, or buts' after you.: correct Ask the patient to 'take a piece of paper with their right hand' 'fold paper in half' 'place paper on floor': take paper in right hand, fold paper in half and place paper on floor Print the sentence 'CLOSE YOUR EYES' on a piece. If patient actually closes eyes then score.: followed written direction Give patient a blank piece of paper & ask to write a sentence. Score if it contains a noun & verb.: sentence contains subject and verb Ask patient to copy figure of intersecting pentagons exactly. Score if all 10 angles & 2 intersects are included.: all 10 angles present & 2 are intersected Score Score: 29 Activity of Daily Living Bathing - sponge bath, tub bath or shower: receives no assistance (gets in/out by self, if usual bathing means Dressing - getting clothes from closets & drawers, including inner/outer garments & fasteners.: gets clothes & gets completely dressed without help Toileting - going to the 'toilet room' for urine/bowel elimination & cleaning self/arranging clothes: goes to toilet room, cleans self, arranges clothes without help Transfer: moves in & out of bed and chair without help (may use support object) Continence: controls urination/bowel movements completely by self Feeding: feeds self without help Total Score: 0 Information obtained from: patient Using telephone: independent Traveling: independent Shopping: independent Preparing meals: independent Housework: independent Taking medicine: independent Managing money: independent PHQ-9 Over the last 2 weeks, how often have you been bothered by any of the following problems? 1. Little interest or pleasure in doing things: not at all 2. Feeling down, depressed, or hopeless: not at all 3. Trouble falling or staying asleep, or sleeping too much: not at all 4. Feeling tired or having little energy: not at all 5. Poor appetite or overeating: not at all 6. Feeling bad about yourself - or that you are a failure or have let yourself or your family down: not at all 7. Trouble concentrating on things, such as reading the newspaper or watching television: not at all 8. Moving or speaking so slowly that other people could have noticed. Or the opposite - being so fidgety or restless that you have been moving around a lot more than usual: not at all 9. Thoughts that you would be better off or of hurting yourself in some way: not at all Total score: 0 Depression Screening Interpretation: Negative Depression Screening Done: Yes 90922 - PHQ-9 Billing: Yes Source: Developed by Drs. Ishmael Parks, Melissa Huffman, Domo Duron and colleagues, with an educational darshan from [employer]. Physical Exam Vital Signs: Last Vital Signs Temp 97.7 F 04/28/24 07:38 Pulse 84 04/28/24 07:38 Resp 16 04/28/24 07:38 BP 134/80 04/28/24 07:38 Pulse Ox 97 04/28/24 07:38 Oxygen Delivery Method Room Air 04/28/24 07:38 BMI result Body Mass Index 30.7 Neuro Other: able to tandem walk, able to stand from sitting position, + whisper test, neg rhomberg Assessment & Plan Assessment & Plan (1) Elevated liver enzymes: Code(s): R74.8 - Abnormal levels of other serum enzymes (2) Smoker: Code(s): F17.200 - Nicotine dependence, unspecified, uncomplicated (3) Left knee pain: Code(s): M25.562 - Pain in left knee Plan . Orders: Orders Complete Blood Count Auto Diff Today I10 - Essential (primary) hypertension, R74.8 - Abnormal levels of other serum enzymes TSH reflex Free T4 Today I10 - Essential (primary) hypertension, R74.8 - Abnormal levels of other serum enzymes Lipid Panel Today I10 - Essential (primary) hypertension, R74.8 - Abnormal levels of other serum enzymes US abdomen complete Today R74.8 - Abnormal levels of other serum enzymes XR knee LT 2V Today M25.562 - Pain in left knee Comprehensive [place]. Panel Fast Today I10 - Essential (primary) hypertension, R74.8 - Abnormal levels of other serum enzymes UA CC w/rflx Micro + Cult Today I10 - Essential (primary) hypertension, R74.8 - Abnormal levels of other serum enzymes Referrals Lung Cancer Screening Referral F17.200 - Nicotine dependence, unspecified, uncomplicated Quality Reporting (2019) Depression/Bipolar (159/160/161/177) PHQ-9: Total score: 0 Coding Level of Care Code Medicare First (G0438) Est Pt Level 3 (21786) Diagnoses Elevated liver enzymes R74.8 Smoker F17.200 Left knee pain M25.562 CPT Codes Advance Care Planning - Time spent: 1-15 minutes, on File ([id number]) Additional Codes PHQ-9 - 93456 - PHQ-9 Billing: Yes ([id number]) Advance Care Planning Forms completed: Health Care Proxy (form given to pt to fill out), MOLST (form given to pt to fill out, and explained) and Living will (recommended getting this done) Time spent: 1-15 minutes, on File Actual minutes spent: 15
== END 2024-04-28 08:47 | disposition home or self-care (01) ==
PROVIDERS: PCP Nurse Practitioner Family; Visit Provider Nurse Practitioner Family
DX: Z00.00 Encounter for general adult medical examination without abnormal findings (principal); R74.8 Abnormal levels of other serum enzymes; F17.200 Nicotine dependence, unspecified, uncomplicated; M25.562 Pain in left knee; Z23 Encounter for immunization

== ENCOUNTER → 2024-04-28 07:17 | Outpatient (BNVA) | payer OTHER, SELFPAY | PROVIDERS: PCP Nurse Practitioner Family; Visit Provider Nurse Practitioner Family | DX: Z23 Encounter for immunization (principal); R74.8 Abnormal levels of other serum enzymes; M25.562 Pain in left knee; F17.200 Nicotine dependence, unspecified, uncomplicated; Z71.6 Tobacco abuse counseling | CPT/HCPCS: 90471; 90677; 96127; 99212 ==

== ENCOUNTER 2024-04-29 08:38 | Outpatient (REF) | payer MEDICARE, OTHER, SELFPAY ==
--- NOTE | ~2024-04-29 | XR_ITS ---
EXAMINATION: XR KNEE, LEFT CLINICAL INFORMATION: M25.562 - Pain in left knee COMPARISON: None available. TECHNIQUE: Two views of the left knee. FINDINGS: Joint space narrowing involving mostly the medial compartment without seated sclerosis of the articular surface in the medial tibial plateau. No acute cortical disruption or malalignment. Vascular calcifications. No gross suprapatellar bursa joint effusion. XR/XR knee LT 2V IMPRESSION: Medial compartment osteoarthrosis, mild, left knee. Electronically signed by: Moo Garcia MD 04/29/2024 10:32 AM MARIEL
--- OUTSIDE RECORDS SUMMARY | 2024-04-29 08:57 | XMS_ITS ---
Author Organization [facility] Address [address] [place] [phone] Care Team Providers Care Buzzsaw Operator Helper Name Role Phone NEEL GARCIA Primary Care Provider Manjinder Johnson Jr REASON FOR VISIT pathology Encounters Encounter Location Date Provider Diagnosis [facility] [address] [place] [phone] 04/07/2024 Manjinder Torres Jr PLAN OF TREATMENT No Information
--- OUTSIDE RECORDS SUMMARY | 2024-04-29 08:58 | XMS_ITS ---
Author Organization [facility] Address [address] [place] [address] Care Team Providers Care Lost And Found Clerk Name Role Phone NEEL GARCIA Primary Care Provider Manjinder Johnson Jr Unavailable [phone] REASON FOR VISIT screening Encounters Encounter Location Date Provider Diagnosis [facility] Outpatient [address] [place] [phone] 04/01/2024 Manjinder Torres Jr Colon cancer screening Z12.11 and Colon polyps K63.5 ASSESSMENTS Encounter Date Diagnosis Assessment Notes Treatment Notes Treatment Clinical Notes 04/01/2024 Colon cancer screening (ICD-10 - Z12.11) 04/01/2024 Colon polyps (ICD-10 - K63.5) PLAN OF TREATMENT No Information
--- OUTSIDE RECORDS SUMMARY | 2024-04-29 08:58 | XMS_ITS | Patient Health Record ---
Author Organization [facility] Address [address] [address] [place] [phone] Care Team Providers Care Inbound Telemarketer Name Role Phone NEEL GARCIA Primary Care Provider Manjinder Johnson Jr Unavailable [phone] ALLERGIES No Known Allergies RESULTS Component Value Reference Range Notes Pathology Reviewed date:04/07/2024 10:35:13 AM Interpretation: Performing Lab:[facility], [address] [place] [phone] Notes/Report: REASON FOR REFERRAL Referring Provider First Name Jennifer Referring Provider Last Name Betty Referring Provider Speciality Internal M edicine Referred Organization [facility] Referred Provider Manjinder Scott Jr Referred Address [address] [place] [address],[place] [facility],[place],[address], Referred Provider Specialty Gastroentero logy General Notes Aviva Hernandez 024 03:02:16 PM EDT > REQUESTED A FAMILY HEALTH PLAN REFERRAL FROM DR LAKHANI OFFICE FOR VISIT WITH DR SCOTT ON (SPOKE WITH [facility]) [phone] Referral Priority Routine MEDICATIONS Medication SIG (Take, Route, Frequency, Duration) Notes Start Date End Date Status Losartan Potassium 25 MG Oral for 90 Active Hkllh-6-rqso Ethyl Esters 1 GM Oral for 90 [...] Problem Colon cancer screening (Z12.11) Active confirmed 787154564 Problem Encounter for other preprocedural examination (Z01.818) Active confirmed 568841871 Problem Long-term current use of high risk medication other than anticoagulant (Z79.899) Active confirmed 125343583 Problem Personal history of colonic polyps (Z86.0100) Active confirmed 298422304 VITAL SIGNS Temperature 97.3 degrees Fahrenheit 03/07/2024 Blood pressure diastolic 00 mm Hg 03/07/2024 Height 71 in 03/07/2024 Blood pressure systolic 000 mm Hg 03/07/2024 Weight 226 lb 4 oz lbs 03/07/2024 BMI 31.55 kg/m2 03/07/2024 Encounters Encounter Location Date Provider Diagnosis [facility] Outpatient [address], [place] [phone] 04/01/2024 Manjinder Scott Jr Colon cancer screening Z12.11 and Colon polyps K63.5 [facility] [address] [place] [address] 12/02/2023 Manjinder Scott Jr [facility] [address] [place] [address] 03/07/2024 Manjinder Scott Jr Colon cancer screening Z12.11 ; Encounter for other preprocedural examination Z01.818 ; Personal history of colonic polyps Z86.0100 and Long-term current use of high risk medication other than anticoagulant Z79.899 [facility] [address] [place] [address] 12/02/2023 Manjinder Scott Jr [facility] [address] [place] [address] 04/07/2024 Manjinder Scott Jr ASSESSMENTS Encounter Date Diagnosis Assessment Notes Treatment Notes Treatment Clinical Notes 04/01/2024 Colon cancer screening (ICD-10 - Z12.11) 04/01/2024 Colon polyps (ICD-10 - K63.5) 03/07/2024 Colon cancer screening (ICD-10 - Z12.11) Colonoscopy material was printed 03/07/2024 Encounter for other preprocedural examination (ICD-10 - Z01.818) 03/07/2024 Personal history of colonic polyps (ICD-10 - Z86.0100) 03/07/2024 Long-term current use of high risk medication other than anticoagulant (ICD-10 - Z79.899) PLAN OF TREATMENT Future Test Test Name Order Date COLONOSCOPY 07/30/2012 COLONOSCOPY 02/25/2018 COLONOSCOPY 03/10/2024 Insurance Providers Payer Name Payer Address Payer Phone Subscriber Number Group Number Insured Name Patient Relationship to Insured Coverage Start Date Coverage End Date [facility] (REFERRA L NEEDED) [address] [place] [phone] [id number] BRAD TRAN Self - patient is the insured MEDICAL (GENERAL) HISTORY Medical History History ICD Code Hypertension Hyperlipidemia Elevated alkaline phosphatase Kidney angiomyolipoma Colonoscopy 05/25, hyperplast ic polyp, five-year followup for prior history of adenomas. Surgical History Surgery Date(Month/Year)
--- OUTSIDE RECORDS SUMMARY | 2024-04-29 08:58 | XMS_ITS ---
Author Organization [facility] Address [address] [place] [phone] Care Team Providers Care Opto Mechanical Engineer Name Role Phone NEEL GARCIA Primary Care Provider Manjinder Johnson Jr ALLERGIES No Known Allergies REASON FOR VISIT Patient presents today for a screening colonoscopy MEDICATIONS Medication SIG (Take, Route, Frequency, Duration) Notes Start Date End Date Status Losartan Potassium 25 MG Oral for 90 Active Bwnts-4-gjfh Ethyl Esters 1 GM Oral for 90 Active amLODIPine Besylate 2.5 MG Oral for 90 Active Sildenafil Citrate 100 MG 1 tablet as ne eded Orally Once a day for 30 day(s) 03/07/2024 Active Vitamin D3 Active Atorvastatin Calcium 20 MG 1 tablet Oral ly Once a day Active IMMUNIZATIONS Vaccine Route Administration Date Status Comme nts Influenza Unknown 03/07/2024 Refused SOCIAL HISTORY Tobacco [...] W/U Status Risk SNOMED Code Notes Problem Personal history of colonic polyps (Z86.0100) Active confirmed 891560728 Problem Long-term current use of high risk medication other than anticoagulant (Z79.899) Active confirmed 033048518 VITAL SIGNS BMI 31.55 kg/m2 03/07/2024 Blood pressure systolic 000 mm Hg 03/07/20 24 Blood pressure diastolic 00 mm Hg 024 Height 71 in 03/07/2024 Temperature 97.3 degrees Fahrenheit 03/07/20 24 Weight 226 lb 4 oz lbs 03/07/2024 Encounters Encounter Location Date Provider Diagnosis [facility] [address] [place] [address] 03/07/2024 Manjinder Torres Jr Colon cancer screening Z12.11 ; Encounter for other preprocedural examination Z01.818 ; Personal history of colonic polyps Z86.0100 and Long-term current use of high risk medication other than anticoagulant Z79.899 ASSESSMENTS Encounter Date Diagnosis Assessment Notes Treatment Notes Treatment Clinical Notes 03/07/2024 Colon cancer screening (ICD-10 - Z12.11) Colonoscopy material was printed 03/07/2024 Encounter for other preprocedural examination (ICD-10 - Z01.818) 03/07/2024 Personal history of colonic polyps (ICD-10 - Z86.0100) 03/07/2024 Long-term current use of high risk medication other than anticoagulant (ICD-10 - Z79.899) PLAN OF TREATMENT Treatment Notes Assessment Notes Colon cancer screening Colonoscopy mater ial was printed Future Test Test Name Order Date COLONOSCOPY 03/10/2024 Next Appt Details Follow Up: 2 Months, Reason: Progress Notes * Examination Category Sub-Category Detail Notes General Examination GENERAL APPEARANCE: in no ac drew distress HEAD: normocephalic EYES: sclera non-icteric NECK/THYROID: no lymphadenopathy HEART: S1, S2 normal, no mu rmurs CHEST: normal shape and exp ansion LUNGS: clear to auscultatio n bilaterally ABDOMEN: soft, nontender, non distended, bowel sounds present, no organomegaly SKIN: anicteric EXTREMITIES: no clubbing, cyanosi s, or edema PSYCH: cognitive function i ntact ORAL CAVITY: mucosa moist
== END 2024-04-29 08:39 | disposition home or self-care (01) ==
LOC: HO.HMGCLDS 08:38
PROVIDERS: PCP Nurse Practitioner Family; Visit Provider Nurse Practitioner Family
DX: M25.562 Pain in left knee (principal)
CPT/HCPCS: 73560

== ENCOUNTER → 2024-04-29 08:44 | Outpatient (BNV) | payer MEDICARE, OTHER, SELFPAY | PROVIDERS: PCP Nurse Practitioner Family; Visit Provider Radiology Diagnostic Radiology | DX: M25.562 Pain in left knee (principal) | CPT/HCPCS: 73560 ==

== ENCOUNTER 2024-05-23 08:52 | Outpatient (REF) | payer MEDICARE, OTHER, SELFPAY ==
--- NOTE | ~2024-05-23 | US_ITS ---
CLINICAL HISTORY: R74.8 - Abnormal levels of other serum enzymes US abdomen complete Comparison: US/VA/SR - US ABDOMEN COMP W ELASTOGRAPHY - 05/01/21 11:40 EST Findings: The visualized pancreas is normal. The aorta and inferior vena cava are normal caliber. Liver length 18.7 cm. Echogenic liver parenchyma. 1 cm hypoechoic focus within the left lobe of the liver, compatible with a benign lesion. There is no intrahepatic bile duct dilatation. The common duct is 5 mm in diameter. The gallbladder is normal. There is no sonographic Tena sign. The main portal vein is antegrade. The right kidney is 11.5 cm in length. The left kidney is 11.0 cm in length. The spleen is normal. No ascites. IMPRESSION: Mild hepatomegaly with fatty infiltration of the liver. Apparent interval worsening of fatty infiltration since the prior study. This document has been electronically signed by: Dennise Alicea MD on 05/24/2024 14:42:37
--- OUTSIDE RECORDS SUMMARY | 2024-05-23 09:17 | XMS_ITS ---
Author Organization [facility] Address [address] [place] [address] Care Team Providers Care Thermograph Operator Name Role Phone NEEL GARCIA Primary Care Provider Manjinder Johnson Jr [phone] Allergies No Known Allergies REASON FOR VISIT Patient presents today for a screening colonoscopy Medications Medication SIG (Take, Route, Frequency, Duration) Notes Start Date End Date Status Losartan Potassium 25 MG Oral for 90 Active Bvoop-7-lavj Ethyl Esters 1 GM Oral for 90 Active amLODIPine Besylate 2.5 MG Oral for 90 Active Sildenafil Citrate 100 MG 1 tablet as ne eded Orally Once a day for 30 day(s) 03/07/2024 Active Vitamin D3 Active Atorvastatin Calcium 20 MG 1 tablet Oral ly Once a day Active Immunizations Vaccine Route Administration Date Status Comme nts Influenza Unknown 03/07/2024 Refused Social History Tobacco Use: Social History Observation Description Date Details (start date - stop date) Former Smoker NA - NA Tobacco Use/Smoking Question Answer Notes Patient is [...] Monthly (2 points) Points 7 Interpretation Positive Problems Problem Type SNOMED Code ICD Code Onset Dates Problem Status W/U Status Risk Notes Problem 686149862 Personal history of colonic polyps (Z86.0100) Active confirmed Problem 688039500 Long-term curren t use of high risk medication other than anticoagulant (Z79.899) Active confirmed Vital Signs Temperature 97.3 degrees Fahrenheit 03/07/20 24 Blood pressure systolic 000 mm Hg 03/07/20 24 Blood pressure diastolic 00 mm Hg 024 Height 71 in 03/07/2024 Weight 226 lb 4 oz lbs 03/07/2024 BMI 31.55 kg/m2 03/07/2024 Encounters Encounter Location Date Provider Diagnosis [facility] [address] [place] [address] 03/07/2024 Manjinder Torres Jr Colon cancer screening Z12.11 ; Encounter for other preprocedural examination Z01.818 ; Personal history of colonic polyps Z86.0100 and Long-term current use of high risk medication other than anticoagulant Z79.899 Assessments Encounter Date Diagnosis (ICD Code) Assessment Notes Treatment Notes Treatment Clinical Notes Section Notes 03/07/2024 Colon cancer screening (ICD-10 - Z12.11) Colonoscopy material was printed We discussed colonoscopy today. We discussed her symptoms as of the procedure today. He understands these and agrees to proceed. This will be scheduled at his convenience. He is advised to stop omega-3 is one week before the procedure. 03/07/2024 Encounter for other preprocedural examination (ICD-10 - Z01.818) We discussed colonoscopy today. We discussed her symptoms as of the procedure today. He understands these and agrees to proceed. This will be scheduled at his convenience. He is advised to stop omega-3 is one week before the procedure. 03/07/2024 Personal history of colonic polyps (ICD-10 - Z86.0100) We discussed colonoscopy today. We discussed her symptoms as of the procedure today. He understands these and agrees to proceed. This will be scheduled at his convenience. He is advised to stop omega-3 is one week before the procedure. 03/07/2024 Long-term current use of high risk medication other than anticoagulant (ICD-10 - Z79.899) We discussed colonoscopy today. We discussed her symptoms as of the procedure today. He understands these and agrees to proceed. This will be scheduled at his convenience. He is advised to stop omega-3 is one week before the procedure. Plan Of Treatment Treatment Notes Assessment Notes Colon cancer screening Colonoscopy mater ial was printed Future Test Test Name Order Date COLONOSCOPY 03/10/2024 Next Appt Details Follow Up: 2 Months, Reason: Progress Notes * BRAD TRAN TDOB: [birth year] (63 yo M)Acc No.[id number]:03/07/2024 Progress Notes Patient:?BRAD TRAN Provider:?Manjinder Torres MD :1960???Age:63 Y???Sex:Male [place] e:03/07/2024 Address:[address] [place], [place] [id number] Pcp:NEEL GARCIA Subjective: * Chief Complaints: * ???1. Patient presents today for a screening colonoscopy. * HPI: ???New symptom(s):? The patient is a pleasant 63-year-old man seen today for his preoperative colonoscopy visit. Previous colonoscopy in May of 2018 showed a hyperplastic polyp. Five-year followup was recommended because of his prior history of adenomas. We reviewed this today. ?He feels well. He has no complaints of rectal bleeding or change in his bowel habits except for occasional hard stools which he relates to not enough fiber in his diet. We discussed the high-fiber diet today. * ROS:?General/Constitutional:?Change in appetite?denies.?Fatigue?denies.?ENT:?Patient denies?difficulty swallowing.?Respiratory:?Patient denies?shortness of breath.?Cardiovascular:?Patient denies?chest pain.?Gastrointestinal:?Comments?See HPI for details.?Genitourinary:?Difficulty urinating?denies.?Incontinence?denies.?Musculoskeletal:?Patient denies?muscle aches.?Skin:?Patient denies?pruritis.?Neurologic:?Patient denies?low back pain.?Psychiatric:?Patient denies?mental or physical abuse.? * Medical History:?Hypertensio n, Hyperlipidemia, Elevated alkaline phosphatase, Kidney angiomyolipoma, Colonoscopy 05/25, hyperplastic polyp, five-year followup for prior history of adenomas.. * Family History:?Father: dece ased, diagnosed with HTN (hypertension).?Mother: .? no known hx of colon ca. No family history of liver cancer. * Social History:?Tobacco Use:?Tobacco Use/Smoking?Patient is a?former smoker,?How long has it been since you last smoked??1-5 years.?Drugs/Alcohol:?Alcohol Screen?Did you have a drink containing alcohol in the past year??Yes,?How often did you have a drink containing alcohol in the past year??2 to 4 times a month (2 points),?How many drinks did you have on a typical day when you were drinking in the past year??7 to 9 drinks (3 points),?How often did you have 6 or more drinks on one occasion in the past year??Monthly (2 points),?Points?7,?Interpretation?Positive.?Miscellaneous:?Marital status: . Occupation: labor. * Medications:?Taking Vitamin D3 , Taking Atorvastatin Calcium 20 MG Tablet 1 tablet Orally Once a day, Taking Losartan Potassium 25 MG Tablet Oral , Taking Apezp-4-acbm Ethyl Esters 1 GM Capsule Oral , Taking amLODIPine Besylate 2.5 MG Tablet Oral , Taking Sildenafil Citrate 100 MG Tablet 1 tablet as needed Orally Once a day, Discontinued Colyte with Flavor Packs 240 GM Solution Reconstituted As directed Orally Over the specified time., Medication List reviewed and reconciled with the patient * Allergies:?N.K.D.A. Objective: * Vitals:?Wt: 226 lb 4 oz, Ht: 71 in, BMI:31.55 Index, BP: 000/00 mm Hg, Temp: 97.3. * Examination: ???General Examination: ?GENERAL APPEARANCE:?in no acute distress.?HEAD:?normocephalic.?EYES:?sclera non-icteric.?ORAL CAVITY:?mucosa moist.?NECK/THYROID:?no lymphadenopathy.?SKIN:?anicteric.?HEART:?S1, S2 normal, no murmurs.?LUNGS:?clear to auscultation bilaterally.?CHEST:?normal shape and expansion.?ABDOMEN:?soft, nontender, nondistended, bowel sounds present, no organomegaly .?EXTREMITIES:?no clubbing, cyanosis, or edema.?PSYCH:?cognitive function intact.? Assessment: * Assessment: 1.?Encounter for other prepr ocedural examination - Z01.818 (Primary)?2.?Colon cancer screening - Z12.11?3.?Personal history of colonic polyps - Z86.0100?4.?Long-term current use of high risk medication other than anticoagulant - Z79.899? We discussed colonoscopy tod sahra. We discussed her symptoms as of the procedure today. He understands these and agrees to proceed. This will be scheduled at his convenience. He is advised to stop omega-3 is one week before the procedure. Plan: * Treatment: * Immunizations:? Influenza (Not administered - Refused: Patient decision) * Procedure Codes:?3017F COLOR ECTAL CA SCREEN DOC REV, G9903 Pt scrn tbco id as non user, G9744 PATIENT NOT ELIG D/T ACTIVE DX HTN * Preventive Medicine:? ??Counseling:?Care goal follow-up plan:?Above Normal BMI Follow-up?Giving encouragement to exercise,?BMI management provided?Yes.? * Follow Up:?2 Months * * Sign off status: Completed true * Provider:?Manjinder Torres MD Date:?1 Generated for Wilmai tomer/Concepcion/eTransmitting on:?05/23/2024 09:17 AM EDT History and Physical Notes * HPI (History of Present Illness) Category Sub-Category Detail Notes Category Not es New symptom(s) The patient is a pleasant 63-year-old man seen today for his preoperative colonoscopy visit. Previous colonoscopy in May of 2018 showed a hyperplastic polyp. Five-year followup was recommended because of his prior history of adenomas. We reviewed this today. He feels well. He has no complaints of rectal bleeding or change in his bowel habits except for occasional hard stools which he relates to not enough fiber in his diet. We discussed the high-fiber diet today. Examination Category Sub-Category Detail Notes Category Not es General Examination GENERAL APPEARANCE: in no acute di stress HEAD: normocephalic EYES: sclera non-icteric NECK/THYROID: no lymphadenopathy HEART: S1, S2 normal, no mu rmurs CHEST: normal shape and exp ansion LUNGS: clear to auscultatio n bilaterally ABDOMEN: soft, nontender, non distended, bowel sounds present, no organomegaly SKIN: anicteric EXTREMITIES: no clubbing, cyanosi s, or edema PSYCH: cognitive function i ntact ORAL CAVITY: mucosa moist
--- OUTSIDE RECORDS SUMMARY | 2024-05-23 09:17 | XMS_ITS ---
Author Organization [facility] Address [address] [place] [address] Care Team Providers Care Physician Office Secretary Name Role Phone NEEL GARCIA Primary Care Provider Manjinder Johnson Jr [phone] REASON FOR VISIT screening Encounters Encounter Location Date Provider Diagnosis [facility] Outpatient [address] [place] [phone] 04/01/2024 Manjinder Torres Jr Colon cancer screening Z12.11 and Colon polyps K63.5 Assessments Encounter Date Diagnosis (ICD Code) Assessment Notes Treatment Notes Treatment Clinical Notes Section Notes 04/01/2024 Colon cancer screening (ICD-10 - Z12.11) 04/01/2024 Colon polyps (ICD-10 - K63.5) Plan Of Treatment No Information Progress Notes * BRAD TRAN TDOB: [birth year] (64 yo M)Acc No.[id number]:04/01/2024 COLON WITH MAC Patient:?BRAD TRAN Provider:?Manjinder Torres MD :1960???Age:63 Y???Sex:Male [place] e:04/01/2024 Address:[address] [place], [place] [id number] Pcp:NEEL GARCIA Subjective: * Chief Complaints: * ???1. Screening. * Medical History:? Objective: * Vitals:? Assessment: * Assessment: 1.?Colon cancer screening - Z12.11 (Primary)???2.?Colon polyps - K63.5??? Plan: * Treatment: * Procedure Codes:?47858 LAURAIO N REMOVAL COLONOSCOPY, 0529F INTRVL 3+YRS PTS CLNSCP DOCD * * The named appointment provid er may or may not be the originator of this progress note, and it is not deemed complete until electronically signed by the appointment provider. Sign off status: Pending * Provider:?Manjinder Torres MD Date:?0 04/01/2024 Generated for Hattie jeff/Concepcion/Odiliaitting on:?05/23/2024 09:17 AM EDT
--- OUTSIDE RECORDS SUMMARY | 2024-05-23 09:17 | XMS_ITS ---
Author Organization [facility] Address [address] [place] [address] Care Team Providers Care Funeral Driver Name Role Phone NEEL GARCIA Primary Care Provider Manjinder Johnson Jr [phone] REASON FOR VISIT pathology Encounters Encounter Location Date Provider Diagnosis [facility] [address] [place] [address] 04/07/2024 Manjinder Torres Jr Plan Of Treatment No Information Progress Notes * BRAD TRAN TDOB: [birth year] (63 yo M)Acc No.[id number]:04/07/2024 Patient:?BRAD TRAN :1960???Age:63 Y???Sex:Male Address:[address] [place] [address], [address] * true * Date:? Generated for Hattie jeff/Concepcion/eTransmitting on:?05/23/2024 09:16 AM EDT
--- OUTSIDE RECORDS SUMMARY | 2024-05-23 09:17 | XMS_ITS | Patient Health Record ---
Author Organization [facility] Address [address] [place] [address] Care Team Providers Care Bobbin Drier Name Role Phone NEEL DE LA CRUZ Primary Care Provider Manjinder Johnson Jr [phone] Allergies No Known Allergies Results Component Value Reference Range Notes Pathology Reviewed date:04/07/2024 10:35:13 AM Interpretation: Performing Lab:[facility], [address] [place] [phone] Notes/Report: Name: Reji Tran Age/Sex: 63/M : 1960 Unit#: [id number] Attend Dr: Manjinder Scott MD Re04/01/24 Status : [facility] Location: [facility] Disch: SPEC : [id number] RECD: 04/01/24-1235 STATUS: KATHARINE BARRIOS NUM: [id number] LEANN: 04/01/24-1203 [facility] DR: Manjinder Scott MD ENTERED: 04/01/24-12 37 SP TYPE: Surgical [facility]R DR[facility] ORDERED: HE Stain/3, Gross Micro L4 THIS IS A CORRECT ED REPORT 04/04/24-1 This is a corrected report. Any previous version s are stored internally and are available if necessary. Diagnosis Colon, right, polyp: Tubular adenoma; negative for high-grade dysplasia and carcinoma. Note: Report corrected to remove parts B and C from the diagnosis and correct specimen location from cecal to right . Clinical History Pre-Op Dx: Screening Post-Op Dx: Colon polyp Microscopic Description Microscopic sections reviewed. Material Received Right colon polyp Gross Description Received in formalin labeled ?right colon polyp? are 2 fragments of red-pink soft tissue measuring 0.3 and 0. 3 cm in greatest dimension which are wrapped in lens paper and entirely submitted for micros copic examination, 2 pieces in cassette [facility] Copies To: Manjinder Scott MD [address] [place] [phone] Neel De La Cruz [address] [address] CONTINUED ON NEXT PAGE Name: Reji Tran Age/Sex: 63/M : 1960 Unit#: [id number] Attend Dr: Manjinder Scott MD Re04/01/24 Status : [facility] Location: [facility] Disch: SPEC : [id number] RECD: 04/01/241235 STATUS: KATHARINE BARRIOS NUM: [id number] LEANN: 04/01/24-[address]: Manjinder Scott MD ENTERED: 04/01/24- 37 SP TYPE: Surgical OTHR DR: Neel De La Cruz [facility] ORDERED: NII Stain/3, Gross Micro L4 Copies To: (Continued) [phone] Signed (si gnature on file) Anjana Lutz 04/04/24 1049 END OF REPORT Reason For Referral Referring Provider First Name Jennifer Referring Provider Last Name Betty Referring Provider Speciality Internal M edicine Referred Organization [facility] Referred Provider Manjinder Scott Jr Referred Address [address] [place] [address],[place], [place],[address], Referred Provider Specialty Gastroentero logy General Notes Aviva Hernandez 024 03:02:16 PM EDT > REQUESTED A [facility] [employer] REFERRAL FROM DR LAKHANI OFFICE FOR VISIT WITH DR SCOTT ON (SPOKE WITH [facility]) [phone] Referral Priority Routine Medications Medication SIG (Take, Route, Frequency, Duration) Notes Start Date End Date Status Losartan Potassium 25 MG Oral for 90 Active Evvpf-8-djiu Ethyl Esters 1 GM Oral for 90 [...] Unknown 11/07/2017 Administered Influenza Unknown 03/07/2024 Refused Social History Tobacco [...] Problem Status W/U Status Risk Notes Problem 193425879 Colon cancer screening (Z12.11) Active confirmed Problem 430900555 Encounter for other preprocedural examination (Z01.818) Active confirmed Problem 487674354 Long-term curren t use of high risk medication other than anticoagulant (Z79.899) Active confirmed Problem 741653156 Personal history of colonic polyps (Z86.0100) Active confirmed Vital Signs Temperature 97.3 degrees Fahrenheit 03/07/2024 Blood pressure diastolic 00 mm Hg 03/07/2024 Height 71 in 03/07/2024 Blood pressure systolic 000 mm Hg 03/07/2024 Weight 226 lb 4 oz lbs 03/07/2024 BMI 31.55 kg/m2 03/07/2024 Encounters Encounter Location Date Provider Diagnosis [facility] Outpatient [address] [place] [phone] 04/01/2024 Manjinder Scott Jr Colon cancer screening Z12.11 and Colon polyps K63.5 [facility] [address] [place] [phone] 03/07/2024 Manjinder Clementeotto Alvarez Colon cancer screening Z12.11 ; Encounter for other preprocedural examination Z01.818 ; Personal history of colonic polyps Z86.0100 and Long-term current use of high risk medication other than anticoagulant Z79.899 [facility] [address] [place] [phone] 12/02/2023 Manjinder Scott Jr [facility] [address] [place] [address] [address] 04/07/2024 Manjinder Scott Jr Assessments Encounter Date Diagnosis (ICD Code) Assessment [...] week before the procedure. Plan Of Treatment Future Test Test Name Order Date COLONOSCOPY 07/30/2012 COLONOSCOPY 02/25/2018 COLONOSCOPY 03/10/2024 Insurance Providers Payer Name Payer Address Payer Phone Subscriber Number Group Number Insured Name Patient Relationship to Insured Coverage Start Date Coverage End Date [facility] (REFERRA L NEEDED) [address] [place] [phone] [id number] REJI TRAN Self - patient is the insured Medical (General) History Medical History History ICD Code Hypertension Hyperlipidemia Elevated alkaline phosphatase Kidney angiomyolipoma Colonoscopy 05/25, hyperplast ic polyp, five-year followup for prior history of adenomas. Surgical History Surgery Date(Month/Year)
== END 2024-05-23 08:53 | disposition home or self-care (01) ==
LOC: HO.HMGCX 08:52
PROVIDERS: PCP Nurse Practitioner Family; Visit Provider Nurse Practitioner Family
DX: R74.8 Abnormal levels of other serum enzymes (principal)
CPT/HCPCS: 76700

== ENCOUNTER → 2024-05-23 08:57 | Outpatient (BNV) | payer MEDICARE, OTHER, SELFPAY | PROVIDERS: PCP Nurse Practitioner Family; Visit Provider Radiology Diagnostic Radiology | DX: R74.8 Abnormal levels of other serum enzymes (principal) | CPT/HCPCS: 76700; 76981 ==

== ENCOUNTER 2024-06-16 08:00 | Outpatient (RCR) | payer MEDICARE, OTHER, SELFPAY ==
--- NOTE | 2024-05-24 09:44 | MHC.PT.EP ---
[facility] [place] Office [place] Office [place] Office [address] [phone] F: [phone] F: [phone] F: [phone] F: [phone] Physical Therapy Plan of Care Date of Evaluation: 05/24/24 Date of Surgery: Diagnosis: left knee pain. Assessment: Patient is a 64 year old R handed male who presents with s/s consistent with L knee pain. He works with daily job demands including factory work, standing. Patient past medical history includes venous surgery in [place], HTN. Current impairments include pain, balance, flexibility, ROM, strength, activity tolerance and functional mobility. Functional limitations include decreased ability to stand, walk, sleep, negotiate stairs, bend and squat. Patient is motivated with good rehab potential. Skilled PT will address impairments and functional limitations in order to achieve goals. Frequency and Duration: The patient will be seen 2x/week for 5 weeks. Short Term Goals: normal gastroc flex - 3 weeks normal HS flex - 3 weeks I with HEP -2 weeks Halfway Goals: Pain free stair negotiation - 5 weeks Strength 4+/5 grossly - 5 weeks Able to walk/stand > 1 hours without increased pain - 5 weeks Treatment Plan: Modalities to reduce pain, spasms and effusion. Manual therapy to restore motion and function. Therapeutic exercise to improve strength and flexibility. Neuromuscular re-education for posture and balance. Therapeutic activities to return to functional activities of daily living. Electronically signed by: Sandro Bhandari, PT Please sign and return to therapist. Thank you for your referral.
--- NOTE | 2024-09-27 13:29 | MHC.PT.DC ---
[facility] [place] Office [place] Office [place] Office [address] Vaishnavi Lawrence [address] [phone] F: [phone] F: [phone] F: [phone] F: [phone] Physical Therapy Discharge Report Diagnosis: Left Knee Pain Date of Surgery: Date of Evaluation: 05/24/24 Date of Discharge: 06/29/24 Treatments to Date: 7 Cancellations to Date: No Shows to Date: Discharge Status: Improved Function Independent with HEP Discharge Summary: 06/16; Pt is I with HEP. Knee ROM equal B. Strength 4+/5-Pt cont with c/o patella pain with stairs. Pt HS flexibility remain tight B. Pt can walk 1/2 hour before pain. Pt DC with exs and instructed to cont increasing time with amb as jose. 06/14; Pt unable to perform SLS EO, on form surface more than 3 sec. Pt instructed to work on this at home. Pt has 1 isauro visit and discussed isauro 3 more to complete the 10 session from POC. 06/09/24: pt with less pain with standing/walking. ROM improving. continue to progress as tolerated. 06/07/24: pt progressing with standing activities. continue to progress as tolerated. Improved stair mechanics. 06/02/24: pt progressing well overall with improved strength and flex, but still with pain. we will continue to progress ROM, strength, balance, and low impact therex as tolerated. ; Pt unable to perform SLS greater than 3 sec EO ,no foam. Pt had c/o pain with STS. 05/26; Pt jose exs with no increase in pain,but STS increase soreness. Pt was able to perform without U.E assist. NV roll ITB and start balance exs. Patient is a 64 year old R handed male who presents with s/s consistent with L knee pain. He works with daily job demands including factory work, standing. Patient past medical history includes venous surgery in L [place], HTN. Current impairments include pain, balance, flexibility, ROM, strength, activity tolerance and functional mobility. Functional limitations include decreased ability to stand, walk, sleep, negotiate stairs, bend and squat. Patient is motivated with good rehab potential. Skilled PT will address impairments and functional limitations in order to achieve goals. Electronically signed by: Sandro Bhandari, PT Please sign and return to therapist. Thank you for your referral.
== END 2024-09-27 13:29 | disposition home or self-care (01) ==
LOC: HO.PTCHIC 08:00
PROVIDERS: PCP Nurse Practitioner Family; Visit Provider Nurse Practitioner Family
DX: M25.562 Pain in left knee (principal)
CPT/HCPCS: 97110; 97162

== ENCOUNTER 2024-06-17 10:12 | Outpatient (AMB) | payer MEDICARE, OTHER, SELFPAY ==
--- NOTE | 2024-06-17 07:56 | MHC.OFFVIS ---
Intake Visit Reasons: Former Smoker Allergies No Known Allergies Allergy (Verified 04/28/24 07:39) HPI HPI Former Smoker: Details: Initial visit for this 64yo former smoker with a 35PYH. Patient started smoking at age 17 for 37 years at 1ppd. He quit 10 years ago in 2015. . Denies marijuana use. Denies second hand smoke exposure. Denies exposure to chemicals or substances like asbestos. . Denies known family history of lung cancer. Denies personal history of cancers. Denies chest CT in last year. . Denies recent travel outside the [place]. Denies recent respiratory illness or recent hospitalization for respiratory issues. Denies testing positive for COVID. Admits receiving COVID Vaccine. . Denies fever, chills, new/worsening cough, hemoptysis, hoarseness or dysphagia. Denies significant chest pain, significant dyspnea or unintentional weight loss. Patient Lung Cancer Screening Questionnaire reviewed with patient by provider. . Shared Decision Making Completed. Patient meets criteria. Discussed in detail with patient, the risk vs benefit of LDCT screening. Patient consents to proceed with scan. Discussed and encouraged continued smoking cessation. [facility] Medical History (Updated 06/17/24 @ 10:28 by Rosa Roy PA-C) Personal history of nicotine dependence Tubular adenoma of colon Dyslipidemia HTN (hypertension) Angiomyolipoma of kidney Surgical History (Updated 05/16/24 @ 14:22 by Rosa Roy PA-C) Status post endovenous radiofrequency ablation (RFA) of saphenous vein History of colonoscopy H/O prostatectomy Family History Father No problems noted. Mother No problems noted. Social History (Updated 06/17/24 @ 10:28 by Rosa Roy PA-C) Housing: House Are you a primary care coordination manager to a significant other at home: No Do you presently have visiting nurse or other home services: No Alcohol intake: current Alcohol intake frequency: 3 or more drinks per day Patient Tobacco Use Status: Former Tobacco user Tobacco use type: Cigarette Years Smoked: (onset 17yo, 1ppd x 37yrs, 35pyh - quit 2014) e-Cigarette/Vaping Use: Former Use Second Hand Smoke Exposure: No Current occupational status: employed Cognitive needs: No Hearing needs: No Vision needs: No Assessment & Plan Assessment & Plan (1) Personal history of nicotine dependence: Comment: (onset 17yo, 1ppd x 37yrs, 35pyh - quit 2014) Code(s): Z87.891 - Personal history of nicotine dependence Category: Medical Plan: - SDM visit completed today in office. - Patient meets criteria for LDCT for lung cancer screening purposes and is asymptomatic. - Smoking cessation counseling offered. Patients can always call [phone]. - Will arrange for a LDCT scan of the chest for screening purposes at [facility]. - Risks, benefits, and alternatives were discussed in detail and the patient agrees to proceed. - Risks discussed include but are not limited to: radiation exposure, anxiety during testing and while awaiting results, false negatives, false positives and possibility of additional intervention such as further imaging or surgical procedures for benign disease. - Benefits are obviously detection of lung cancer at an early stage which can lead to improved outcomes. - Discussed the importance of screening program compliance with adherence to yearly LDCT scan as scheduled - or sooner interval scans for personalized screening regimen. - Discussed follow up plan. Our office will send a letter discussing results and if needed set up phone call and office visit based on CT findings. - Patient educated on results categorization and the management decisions for suspicious findings potentially found on the screening LDCT scan. Any patient with a Lung RADS score of 3 or 4 will be reviewed by a multidisciplinary team at [facility] to form a plan of action in regards to scan findings. - If further work up is warranted for a suspicious lung finding this will be followed by the Lung Cancer Screening program in conjunction with the Thoracic Surgery Department at [facility]. - A copy of the office note and LDCT will be sent to the patient's PCP - as well as documentation on any associated further plans of care. - Incidental findings on LDCT are the PCP's responsibility. These findings are indicated with an S finding on the LDCT Assessment. A note discussing the findings will be sent to the PCP who is then responsible for further management. - All questions answered.? Coding Level of Care Code Lung Cancer Screening G0296 Diagnoses Personal history of nicotine dependence Z87.891
--- OUTSIDE RECORDS SUMMARY | 2024-06-17 10:58 | XMS_ITS ---
Author Organization [facility] Address [address] [place] [address] Care Team Providers Care Wire Weaver Helper Name Role Phone NEEL GARCIA Primary Care Provider Manjinder Johnson Jr Allergies No Known Allergies REASON FOR VISIT Patient presents today for a screening colonoscopy Medications Medication SIG (Take, Route, Frequency, Duration) Notes Start Date End Date Status Losartan Potassium 25 MG Oral for 90 Active Apoxu-7-mjfs Ethyl Esters 1 GM Oral for 90 [...] Problem Status W/U Status Risk Notes Problem 539450677 Personal history of colonic polyps (Z86.0100) Active confirmed Problem 982096517 Long-term curren t use of high risk medication other than anticoagulant (Z79.899) Active confirmed Vital Signs Temperature 97.3 degrees Fahrenheit 03/07/20 24 Blood pressure systolic 000 mm Hg 03/07/20 24 Blood pressure diastolic 00 mm Hg 024 Height 71 in 03/07/2024 Weight 226 lb 4 oz lbs 03/07/2024 BMI 31.55 kg/m2 03/07/2024 Encounters Encounter Location Date Provider Diagnosis [facility] [address] [place] [address] 03/07/2024 Manjinder Torres Jr Colon cancer screening [...] BRAD TRAN TDOB: [birth year] (63 yo M)Acc No.[id number]:03/07/2024 Progress Notes Patient:?BRAD TRAN Provider:?Manjinder Torres MD :1960???Age:63 Y???Sex:Male [place] e:03/07/2024 Address:[address] [place], [place] [phone] Pcp:NEEL GARCIA Subjective: * Chief Complaints: * [...] Potassium 25 MG Tablet Oral , Taking Bqhur-1-tzkr Ethyl Esters 1 GM Capsule Oral , [...] Torres MD Date:?1 Generated for Wilmai tomer/Concepcion/eTransmitting on:?06/17/2024 10:57 AM EDT History and Physical Notes * [...]
--- OUTSIDE RECORDS SUMMARY | 2024-06-17 10:58 | XMS_ITS ---
Author Organization [facility] Address [address] [place] [address] Care Team Providers Care Recycling Crew Supervisor Name Role Phone NEEL GARCIA Primary Care Provider Manjinder Johnson Jr [phone] REASON FOR VISIT pathology Encounters Encounter Location Date Provider Diagnosis [facility] [address] [place] [phone] 04/07/2024 Manjinder Torres Jr Plan Of Treatment No Information Progress Notes * BRAD TRAN TDOB: [birth year] (63 yo M)Acc No.[id number]:04/07/2024 Patient:?BRAD TRAN :1960???Age:63 Y???Sex:Male Address:[address] [place] [address], [address] * true * Date:? Generated for Hattie jeff/Concepcion/eTransmitting on:?06/17/2024 10:57 AM EDT
--- OUTSIDE RECORDS SUMMARY | 2024-06-17 10:58 | XMS_ITS | Patient Health Record ---
Author Organization [facility] Address [address] [place] [address] Care Team Providers Care Chore Worker Name Role Phone NEEL DE LA CRUZ Primary Care Provider Manjinder Johnson Jr Allergies No Known Allergies Results Component Value Reference Range Notes Pathology Reviewed date:04/07/2024 10:35:13 AM Interpretation: Performing Lab:[facility], [address] [place] [phone] Notes/Report: Name: Reji Tran Age/Sex: 63/M : 1960 Unit#: [id number] Attend Dr: Manjinder Scott MD Re04/01/24 Status : [facility] Location: [facility] Disch: SPEC : [id number] RECD: 04/01/24-1235 STATUS: KATHARINE BARRIOS NUM: [id number] LEANN: 04/01/24-[address] [facility] [address]: Manjinder Scott MD ENTERED: 04/01/24-12 37 SP TYPE: Surgical O[facility]R DR[facility]: HE Stain/3, Gross Micro [...] copic examination, 2 pieces in cassette [facility] Copies To: Manjinder Scott MD [address] [place] [id number] Neel De La Cruz [address] [address] CONTINUED ON NEXT PAGE Name: Reji Tran Age/Sex: 63/M : 1960 Unit#: [id number] Attend Dr: Manjinder Scott MD Re04/01/24 Status : [facility] Location: [facility] Disch: SPEC : [id number] RECD: 04/01/241235 STATUS: KATHARINE BARRIOS NUM: [id number] LEANN: 04/01/24-[address]: Manjinder Scott MD ENTERED: 04/01/24- 37 SP TYPE: Surgical OTHR DR: Neel De La Cruz [facility] ORDERED: NII Stain/3, Gross Micro L4 Copies To: (Continued) [phone] Signed (si gnature on file) Anjana Lutz 04/04/24 1049 END OF REPORT Reason For Referral Referring Provider First Name Jennifer Referring Provider Last Name Betty Referring Provider Speciality Internal M edicine Referred Organization [facility] Referred Provider Manjinder Scott Jr Referred Address [address] [place] [address],[place], [place],[address], Referred Provider Specialty Gastroentero logy General Notes Aviva Hernandez 024 03:02:16 PM EDT > REQUESTED A [facility] REFERRAL FROM DR LAKHANI OFFICE FOR VISIT WITH DR SCOTT ON (SPOKE WITH [facility]) [phone] Referral Priority Routine Medications Medication SIG (Take, Route, Frequency, Duration) Notes Start Date End Date Status Losartan Potassium 25 MG Oral for 90 Active Apths-3-txqx Ethyl Esters 1 GM Oral for 90 [...] Problem Status W/U Status Risk Notes Problem 926745377 Colon cancer screening (Z12.11) Active confirmed Problem 908278397 Encounter for other preprocedural examination (Z01.818) Active confirmed Problem 760256832 Long-term curren t use of high risk medication other than anticoagulant (Z79.899) Active confirmed Problem 986108249 Personal history of colonic polyps (Z86.0100) Active confirmed Vital Signs Temperature 97.3 degrees Fahrenheit 03/07/2024 Blood pressure diastolic 00 mm Hg 03/07/2024 Height 71 in 03/07/2024 Blood pressure systolic 000 mm Hg 03/07/2024 Weight 226 lb 4 oz lbs 03/07/2024 BMI 31.55 kg/m2 03/07/2024 Encounters Encounter Location Date Provider Diagnosis [facility] [address] [place] [id number] 04/01/2024 Manjinder Scott Jr Colon cancer screening Z12.11 and Colon polyps K63.5 [facility] [address] [place] [address] 03/07/2024 Manjinder Clementeotto Alvarez Colon cancer screening Z12.11 ; Encounter for other preprocedural examination Z01.818 ; Personal history of colonic polyps Z86.0100 and Long-term current use of high risk medication other than anticoagulant Z79.899 [facility] [address] [place] [phone] 12/02/2023 Manjinder Scott Jr [facility] [address] [place] [address] [address] 04/07/2024 Manjinder Scott Jr Assessments Encounter Date [...] Insured Coverage Start Date Coverage End Date [employer] (REFERRA L NEEDED) [address] [place] [address] [id number] REJI TRAN Self - patient is the insured Medical (General) History Medical History History ICD Code Hypertension Hyperlipidemia Elevated alkaline phosphatase Kidney angiomyolipoma Colonoscopy 05/25, hyperplast ic polyp, five-year followup for prior history of adenomas. Surgical History Surgery Date(Month/Year)
--- OUTSIDE RECORDS SUMMARY | 2024-06-17 10:58 | XMS_ITS ---
Author Organization [facility] Address [address] [place] [address] Care Team Providers Care Job Analyst Name Role Phone NEEL GARCIA Primary Care Provider Manjinder Johnson Jr [phone] REASON FOR VISIT screening Encounters Encounter Location Date Provider Diagnosis [facility] [address] [place] [phone] 04/01/2024 Manjinder Torres Jr Colon cancer screening Z12.11 and Colon polyps K63.5 Assessments Encounter Date Diagnosis (ICD Code) Assessment Notes Treatment Notes Treatment Clinical Notes Section Notes 04/01/2024 Colon cancer screening (ICD-10 - Z12.11) 04/01/2024 Colon polyps (ICD-10 - K63.5) Plan Of Treatment No Information Progress Notes * BRAD TRAN TDOB: [birth year] (64 yo M)Acc No.[id number]:04/01/2024 COLON WITH MAC Patient:?BRAD TRAN Provider:?Manjinder Torres MD :1960???Age:63 Y???Sex:Male Cbua e:04/01/2024 Address:[address] [place], [place] [phone] Pcp:NEEL GARCIA Subjective: * Chief Complaints: * ???1. Screening. * Medical History:? Objective: * Vitals:? Assessment: * Assessment: 1.?Colon cancer screening - Z12.11 (Primary)???2.?Colon polyps - K63.5??? Plan: * Treatment: * Procedure Codes:?56814 LAURAIO N REMOVAL COLONOSCOPY, 0529F INTRVL 3+YRS PTS CLNSCP DOCD * * The named appointment provid er may or may not be the originator of this progress note, and it is not deemed complete until electronically signed by the appointment provider. Sign off status: Pending * Provider:?Manjinder Torres MD Date:?0 04/01/2024 Generated for Hattie jeff/Concepcion/Odiliaitting on:?06/17/2024 10:58 AM EDT
== END 2024-06-17 10:29 | disposition home or self-care (01) ==
LOC: HO.HPS 10:13
PROVIDERS: PCP Nurse Practitioner Family; Referring Provider Nurse Practitioner Family; Visit Provider Physician Assistant Medical
DX: Z87.891 Personal history of nicotine dependence (principal)
CPT/HCPCS: G0296

== ENCOUNTER 2024-06-17 10:28 | Outpatient (REF) | payer MEDICARE, OTHER, SELFPAY ==
--- NOTE | ~2024-06-17 | CT_ITS ---
CLINICAL HISTORY: F17.210 - Nicotine dependence, cigarettes, uncomplicated cigarettes, uncomplicated ; 220 lbs, 1 ppd X 42 yrs, former smoker, quit X 5 yrs; Additional Information:-220 lbs, 1 ppd X 42 y rs, former smoker, quit X [address] lung cancer screening (LDCT) Comparison: None Technique: Axial CT images of the chest using low-dose technique. Referring provider counseled the patient on shared decision-making for LDCT screening. Additional counseling was provided on smoking cessation. Effective radiation dose total: DLP 50.9 mGycm, CTDIvol 1.5 mGy. Findings: Lung: Mild emphysema. No suspicious nodule. Coronary artery calcifications: Mild Limited upper abdomen: Unremarkable Other: None Impression: LungRADS 1: Negative exam. Continue annual screening with low dose Chest CT in 12 months. ##L1# Category 1: Normal; continue annual screening Category 2: Benign appearance or behavior, continue annual screening Category 3: Probably benign, [address] recommended Category 4A: Suspicious, [address] recommended; may consider PET/CT Category 4B: Suspicious, Additional diagnostics and/or tissue sampling recommended Category 4X: Suspicious, Additional diagnostics and/or tissue sampling recommended Category 0: Recalls (incomplete screen due to Incomplete coverage, Noise, Respiratory motion, Expiration, Obscured by acute abnormality) This document has been electronically signed by: Gena Edouard MD on 06/17/2024 12:59:45
== END 2024-06-17 10:29 | disposition home or self-care (01) ==
LOC: HO.CT 10:28
PROVIDERS: PCP Nurse Practitioner Family; Visit Provider Physician Assistant Medical
DX: Z12.2 Encounter for screening for malignant neoplasm of respiratory organs (principal); F17.210 Nicotine dependence, cigarettes, uncomplicated
CPT/HCPCS: 71271; G0296

== ENCOUNTER → 2024-06-17 10:30 | Outpatient (BNV) | payer MEDICARE, OTHER, SELFPAY | PROVIDERS: PCP Nurse Practitioner Family; Visit Provider Nuclear Medicine | DX: F17.210 Nicotine dependence, cigarettes, uncomplicated (principal) | CPT/HCPCS: 71271 ==

== ENCOUNTER 2024-10-25 08:30 | Outpatient (REF) | payer MEDICARE, OTHER, SELFPAY ==
--- OUTSIDE RECORDS SUMMARY | 2024-10-25 09:14 | XMS_ITS | Patient Health Record ---
Author Organization [facility] Address [address] [place] [address] Care Team Providers Care Web Site Project Manager Name Role Phone NEEL GARCIA Primary Care Provider Manjinder Johnson Jr Unavailable Allergies No Known Allergies Results Component Value Reference Range Notes Pathology Reviewed date:04/07/2024 10:35:13 AM Interpretation: Performing Lab:[facility], [address] [place] [phone] Notes/Report: Reason For Referral No Information Medications Medication SIG (Take, Route, Frequency, Duration) Notes Start Date End Date Status Losartan Potassium 25 MG Oral for 90 Active Gmdja-9-iheq Ethyl Esters 1 GM Oral for 90 [...] Problem Status W/U Status Risk Notes Problem 735921854 Colon cancer screening (Z12.11) Active confirmed Problem 992183139 Encounter for other preprocedural examination (Z01.818) Active confirmed Problem 560321576 Long-term curren t use of high risk medication other than anticoagulant (Z79.899) Active confirmed Problem 724829848 Personal history of colonic polyps (Z86.0100) Active confirmed Vital Signs Temperature 97.3 degrees Fahrenheit 03/07/2024 Blood pressure diastolic 00 mm Hg 03/07/2024 Height 71 in 03/07/2024 Blood pressure systolic 000 mm Hg 03/07/2024 Weight 226 lb 4 oz lbs 03/07/2024 BMI 31.55 kg/m2 03/07/2024 Encounters Encounter Location Date Provider Diagnosis [facility] [address] [place] [phone] 04/01/2024 Manjinder Torres Jr Colon cancer screening Z12.11 and Colon polyps K63.5 [facility] [address] [place] [address] 03/07/2024 Manjinder Torres Jr Colon cancer screening Z12.11 ; Encounter for other preprocedural examination Z01.818 ; Personal history of colonic polyps Z86.0100 and Long-term current use of high risk medication other than anticoagulant Z79.899 [facility] [address] [place] [phone] 12/02/2023 Manjinder Torres Jr [facility] [address] [place] [phone] 04/07/2024 Manjinder Torrse Jr Assessments Encounter Date Diagnosis (ICD Code) [...] Insured Coverage Start Date Coverage End Date [facility] [employer] (FRIEDA MOURA) [address] [place] [address] [id number] BRAD TRAN Self - patient is the insured Medical (General) History Medical History History ICD Code Hypertension Hyperlipidemia Elevated alkaline phosphatase Kidney angiomyolipoma Colonoscopy 05/25, hyperplast ic polyp, five-year followup for prior history of adenomas. Surgical History Surgery Date(Month/Year)
[2024-10-25 10:04] LABS: MANUAL DIFF FLAG NO
[2024-10-25 10:19] LABS: Hematocrit 42.2 % (42.0-52.0); Hemoglobin 14.1 g/dl (14.0-18.0); Imm Gran Abs Auto 0.02 X10*3/uL (0.00-0.03); Imm Gran Pct Auto 0.3 % (0.0-0.4); Lymphocytes Absolute Auto 1.9 X10*3/uL (1.2-4.9); Mean Corpuscular HGB Conc 33.4 g/dl (31.0-36.0); Mean Corpuscular Hemoglobin 30.9 pg (27.0-33.0); Mean Corpuscular Volume 92.5 fL (80.0-98.0); NRBC Abs Auto 0.000 X10*3/uL (0.0-0.012); NRBC Pct Auto 0.0 /100WBC (0.0-0.2); Platelet Count 231 X10*3/uL (160-400); Red Blood Count 4.56 X10*6/uL (4.60-5.80); White Blood Count 6.1 X10*3/uL (4.8-10.8)
[2024-10-25 10:40] LABS: Alanine Aminotransferase 45 U/L (0-40); Albumin Level 4.2 g/dL (3.5-5.0); Alkaline Phosphatase 111 U/L (39-117); Anion Gap 11 (12-20); Aspartate Amino Transferase 40 U/L (5-37); Blood Urea Nitrogen 14 mg/dL (9-16); Calcium 8.9 mg/dL (8.4-10.2); Carbon Dioxide 27 mmol/L (22-29); Chloride 104 mmol/L (96-108); Cholesterol 159 mg/dL (<200); Estimated Glomerular Filt Rate > 60; HDL Cholesterol 62 mg/dL (>40); Potassium 3.6 mmol/L (3.3-5.1); Sodium 138 mmol/L (135-145); Total Protein 7.0 g/dL (6.5-8.0); Triglycerides 219 mg/dL (<150)
[2024-10-25 10:49] LABS: Appearance Urine Clear; Glucose Urine UA Negative (Negative); PH 5.5 (5.0-9.0); Specific Gravity - Urine 1.025 (1.005-1.025); UMIC TRIGGER UACC YES
== END 2024-10-25 08:31 | disposition home or self-care (01) ==
LOC: HO.HMGCLDS 08:30
PROVIDERS: PCP Nurse Practitioner Family; Visit Provider Nurse Practitioner Family
DX: R74.8 Abnormal levels of other serum enzymes (principal); I10 Essential (primary) hypertension
CPT/HCPCS: 36415; 80053; 80061; 81001; 84443; 85025

== ENCOUNTER 2024-10-27 07:51 | Outpatient (AMB) | payer MEDICARE, OTHER, SELFPAY ==
--- OUTSIDE RECORDS SUMMARY | 2024-10-27 07:56 | XMS_ITS | Patient Health Record ---
Author Organization [facility] Address [address] [place] [address] Care Team Providers Care Slip Cover Cutter Name Role Phone NEEL GARCIA Primary Care Provider Manjinder Johnson Jr Unavailable Allergies No Known Allergies Results Component Value Reference Range Notes Pathology Reviewed date:04/07/2024 10:35:13 AM Interpretation: Performing Lab:[facility], [address] [place] [address] Notes/Report: Reason For Referral No Information Medications Medication SIG (Take, Route, Frequency, Duration) Notes Start Date End Date Status Losartan Potassium 25 MG Oral for 90 Active Afcoj-4-urpw Ethyl Esters 1 GM Oral for 90 [...] Problem Status W/U Status Risk Notes Problem 453157633 Colon cancer screening (Z12.11) Active confirmed Problem 912544176 Encounter for other preprocedural examination (Z01.818) Active confirmed Problem 578981882 Long-term curren t use of high risk medication other than anticoagulant (Z79.899) Active confirmed Problem 071846248 Personal history of colonic polyps (Z86.0100) Active confirmed Vital Signs Temperature 97.3 degrees Fahrenheit 03/07/2024 Blood pressure diastolic 00 mm Hg 03/07/2024 Height 71 in 03/07/2024 Blood pressure systolic 000 mm Hg 03/07/2024 Weight 226 lb 4 oz lbs 03/07/2024 BMI 31.55 kg/m2 03/07/2024 Encounters Encounter Location Date Provider Diagnosis [facility] [address] [place] [id number] 04/01/2024 Manjinder Torres Jr Colon cancer screening Z12.11 and Colon polyps K63.5 [facility] [address] [place] [phone] 03/07/2024 Manjinder Torres Jr Colon cancer screening Z12.11 ; Encounter for other preprocedural examination Z01.818 ; Personal history of colonic polyps Z86.0100 and Long-term current use of high risk medication other than anticoagulant Z79.899 [facility] [address] [place] [phone] 12/02/2023 Manjinder Torres Jr [facility] [address] [place] [phone] 04/07/2024 Manjinder Torres Jr Assessments Encounter Date Diagnosis (ICD Code) [...] Insured Coverage Start Date Coverage End Date [facility] [employer] ([employer]RI[employer]A MOU[employer]) [address] [place] [address] [id number] BRAD TRAN Self - patient is the insured Medical (General) History Medical History History ICD Code Hypertension Hyperlipidemia Elevated alkaline phosphatase Kidney angiomyolipoma Colonoscopy 05/25, hyperplast ic polyp, five-year followup for prior history of adenomas. Surgical History Surgery Date(Month/Year)
--- NOTE | 2024-10-27 08:07 | A.OFFPC_ITS ---
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 Accompanied by: Self / Same As Patient Allergies No Known Allergies Allergy (Verified 10/27/24 08:13) Tobacco use date assessed: 10/27/24 Fall risk assessment: 1 Fall in past year Last assessed Fall Risk: 10/27/24 Dental Screening Dental Screen Date: 10/27/24 Did you have a dental visit in the last 12 months?: Yes Did you have a dental problem in the last 6 months where you did not have access to dental care?: No Was dental information given to patient?: Patient has dentist HPI 6m follow up HPI Details Chief Complaint The patient presents for a follow-up visit to review laboratory results and discuss lifestyle modifications. History of Present Illness The patient is a 64-year-old male presenting with a follow-up visit to review laboratory results and discuss lifestyle modifications. His liver enzymes have shown a slight downward trend, and he has been experiencing microscopic hematuria, for which he is under the care of a urologist. He undergoes annual low-dose CT scans, which are current. The patient consumes two large beers daily, and efforts are being made to reduce this to one alcoholic beer and one nonalcoholic beer per day. The ultimate goal is to transition him entirely to nonalcoholic beer, or although he is currently somewhat resistant to this change. He denies experiencing chest pain, increased dyspnea, abdominal pain, constipation, or diarrhea. He is obese and has been gaining weight, which is attributed to his alcohol consumption and dietary habits. His fasting blood sugar levels are elevated, prompting dietary education focusing on reducing carbohydrates and sugars. Social History - Alcohol use: Consumes two large beers daily, advised to reduce to one alcoholic and one nonalcoholic beer. - Diet: Educated on reducing carbohydrat es and sugars due to elevated fasting blood sugar. Health Maintenance - Annual low-dose CT scan is up to date. - Dietary education provided to manage e levated fasting blood sugar. Review of Systems - Cardiovascular: Denies chest pain. - Respiratory: Denies increased dyspnea. - Gastrointestinal: Denies abdominal nazia n, constipation, or diarrhea. Physical Exam General: Cooperative, healthy appearing, comfortable, no acute distress and well developed, obese Orientation: Patient oriented x3 Limitations: No limitations Head: Normal to inspection Ears: Hearing grossly normal bilaterally Nose: Normal external nose present Face and sinus: Normal facial exam Eyes: Appearance normal, both eyes and all related structures Neck: Normal visual inspection and Yes full ROM Respiratory: Normal respiratory effort and able to speak in complete sentences. Clear to auscultation bilaterally Cardiovascular: Regular rate and rhythm. Normal S1 and S2 GI: Normal to inspection. Soft to palpation and nontender Skin: No rashes or lesions noted Neuro: Patient oriented x3 Extremities: Normal to inspection Results - Labs: Liver enzymes trending down. - Labs: Microscopic hematuria present. Plan The plan includes continued monitoring of liver enzyme levels, which are currently trending downwards. The patient is advised to continue follow-up with urology for microscopic hematuria. Efforts to reduce alcohol consumption are ongoing, with a goal to transition to nonalcoholic beer, or no beer at all. Dietary modifications have been recommended to address obesity and elevated fasting blood sugar, focusing on reducing carbohydrate and sugar intake. The patient will be seen in the near future to reassess progress and make further adjustments as needed. Discussion Notes I discussed with the patient the importance of reducing alcohol consumption to improve liver health and manage weight gain. We reviewed the benefits of transitioning to nonalcoholic beer and the impact of alcohol on blood sugar levels. Dietary changes were emphasized, focusing on reducing carbohydrates and sugars to manage elevated fasting blood sugar. Patient Instructions - Reduce alcohol intake to one alcoholic beer and one nonalcoholic beer per day. - Follow a diet low in carbohydrates and sugars to manage blood sugar levels. - Continue follow-up with urology for mi croscopic hematuria. - Schedule a follow-up appointment to re assess progress. [facility] Medical History Personal history of nicotine dependence Tubular adenoma of colon Dyslipidemia HTN (hypertension) Angiomyolipoma of kidney Surgical History Status post endovenous radiofrequency ablation (RFA) of saphenous vein History of colonoscopy H/O prostatectomy Family History Father No problems noted. Mother No problems noted. Social History Housing: House Are you a primary senior caregiver to a significant other at home: No Do you presently have visiting nurse or other home services: No Alcohol intake: current Alcohol intake frequency: 3 or more drinks per day Patient Tobacco Use Status: Former Tobacco user Tobacco use type: Cigarette Years Smoked: (onset 17yo, 1ppd x 37yrs, 35pyh - quit 2014) e-Cigarette/Vaping Use: Former Use Second Hand Smoke Exposure: No Current occupational status: employed Cognitive needs: No Hearing needs: No Vision needs: No Questionnaire PHQ-9 Over the last 2 weeks, how often have you been bothered by any of the following problems? 1. Little interest or pleasure in doing things: not at all 2. Feeling down, depressed, or hopeless: not at all 3. Trouble falling or staying asleep, or sleeping too much: not at all 4. Feeling tired or having little energy: not at all 5. Poor appetite or overeating: not at all 6. Feeling bad about yourself - or that you are a failure or have let yourself or your family down: not at all 7. Trouble concentrating on things, such as reading the newspaper or watching television: not at all 8. Moving or speaking so slowly that other people could have noticed. Or the opposite - being so fidgety or restless that you have been moving around a lot more than usual: not at all 9. Thoughts that you would be better off or of hurting yourself in some way: not at all Total score: 0 Depression Screening Interpretation: Negative Depression Screening Done: Yes 82359 - PHQ-9 Billing: Yes Source: Developed by Drs. Ishmael Parks, Melissa Huffman, Domo Duron and colleagues, with an educational darshan from [employer]. Thrive Questionnaire Date Thrive assessed: 04/28/24 I am a: Patient What is your living situation today?: I have a steady place to live Within the past 12 months, did the food you bought not last and you didn't have the money to get more?: I choose not to answer this question Within the past 12 months, did you worry whether your food would run out before you got money to buy more?: I choose not to answer this question Do you have trouble paying for medicines?: I choose not to answer this question Do you have trouble getting transportation to medical appointments?: I choose not to answer this question Do you have trouble paying your heating and electricity bill?: I choose not to answer this question Do you have trouble taking care of your child, family member or friend?: I choose not to answer this question Do you have trouble with day-to-day activities such as bathing, preparing meals, shopping, managing finances, etc.?: I choose not to answer this question Are you currently unemployed and looking for a job?: I choose not to answer this question Are you interested in more education?: I choose not to answer this question Please select the resources that you would like help with: None Currently or been in a relationship where the following occur: I choose not to answer THRIVE Score: 0 AUDIT C Alcohol Use Questionnaire (AUDIT-C) 1. How often do you have a drink containing alcohol?: 4 or more times a week 2. How many drinks containing alcohol do you have on a typical day when you are drinking?: 1 or 2 3. How often do you have six or more drinks on one occasion?: Never Total Score: 4 JAMES-7 AMB Questionnaire JAMES-7 Date JAMES - 7 assessed: 10/27/24 Feeling nervous, anxious, or on edge: 0 = Not at all Not being able to stop or control worryin = Not at all Worrying too much about different things: 0 = Not at all Trouble relaxin = Not at all Being so restless that it is hard to sit still: 0 = Not at all Becoming easily annoyed or irritable: 0 = Not at all Feeling afraid as if something awful might happen: 0 = Not at all Total JAMES-7 score (0-4 normal; 5-9 mild; 10-14 moderate; 15-21 severe): 0 Source: Developed by Drs. Ishmael Parks, Melissa Huffman, Domo Duron and colleagues, with an educational darshan from [employer] JAMES-7 Assessment Billing JAMES-7 Assessment Tool: JAMES-7 Assessment 10520 Physical exam (Primary Care) Vital Signs: Last Vital Signs Temp 97.9 F 10/27/24 08:11 Pulse 68 10/27/24 08:11 Resp 16 10/27/24 08:11 BP 118/78 10/27/24 08:11 Pulse Ox 96 10/27/24 08:11 Oxygen Delivery Method Room Air 10/27/24 08:11 BMI result Body Mass Index 31.8 Tobacco/Smoking Status: Tobacco use Status Tobacco use date assessed 10/27/24 10/27/24 08:13 Patient Tobacco Use Status Former Tobacco user 10/27/24 08:08 Tobacco use type Cigarette 10/27/24 08:08 e-Cigarette/Vaping Use Former Use 10/27/24 08:08 PHQ-9: PHQ-9 Score PHQ-9: Total score 0 10/27/24 08:21 Depression Screening Interpretation: Negative Thrive Assessment: Date of Thrive Assessment Date Thrive assessed 04/28/24 10/27/24 08:08 Currently or been in a relationship where the following occur: I choose not to answer Coding Level of Care Code Est Pt Level 3 (73798) Diagnoses ETOH abuse F10.10 Elevated liver enzymes R74.8 Screening PSA (prostate specific antigen) Z12.5 Additional Codes JAMES-7 Assessment Billing - JAMES-7 Assessment Tool: JAMES-7 Assessment 16585 ([id number]) PHQ-9 - 90743 - PHQ-9 Billing: Yes ([id number]) Assessment & Plan Assessment & Plan (1) ETOH abuse: Code(s): F10.10 - Alcohol abuse, uncomplicated Category: Social Hx (2) Elevated liver enzymes: Code(s): R74.8 - Abnormal levels of other serum enzymes Category: Medical (3) Screening PSA (prostate specific antigen): Code(s): Z12.5 - Encounter for screening for malignant neoplasm of prostate Category: Medical Plan . Orders: Orders Prostate Specific Antigen Scr Today Z12.5 - Encounter for screening for malignant neoplasm of prostate
[2024-10-27 08:11] VITALS: BP 118/78; PULSE 68; RESP 16; TEMP 36.6; O2SAT 96; BMI 31.8
== END 2024-10-27 09:09 | disposition home or self-care (01) ==
LOC: HO.HMCC 07:51
PROVIDERS: PCP Nurse Practitioner Family; Visit Provider Nurse Practitioner Family
DX: F10.10 Alcohol abuse, uncomplicated (principal); R74.8 Abnormal levels of other serum enzymes; Z12.5 Encounter for screening for malignant neoplasm of prostate

== ENCOUNTER → 2024-10-27 07:51 | Outpatient (BNVA) | payer MEDICARE, OTHER, SELFPAY | PROVIDERS: PCP Nurse Practitioner Family; Visit Provider Nurse Practitioner Family | DX: F10.10 Alcohol abuse, uncomplicated (principal); R74.8 Abnormal levels of other serum enzymes; Z13.31 Encounter for screening for depression | CPT/HCPCS: 96127; 99212 ==